=== PATIENT | female | born 1945 | race Caucasian/White ===

== ENCOUNTER 2017-05-24 08:07 | Inpatient (IN) | payer MEDICARE, OTHER ==
[~2017-05-24] VITALS: Ht 167.6 cm; Wt 60.3 kg
[~2017-05-24 08:07] MED LIST: ALPR0.5T PO; CLON1TAB PO; ESCI10TA PO; PROP20TA22 PO
[2017-05-24] MEDS ORDERED: ONDANSETRON HCL/PF 4 MG/2 ML VIAL ONE (08:25)
[2017-05-24] MEDS ORDERED: IV NS 0.9% 1,000 ML BAG IV ONE (08:30)
[2017-05-24] MEDS ORDERED: ONDANSETRON HCL/PF 4 MG/2 ML VIAL IVP ONE (08:30)
[2017-05-24 08:57] LABS: CALCIUM, SERUM 8.3 mg/dL (8.5-10.1); CARBON DIOXIDE 31 mmol/L (21-32); CHLORIDE 103 mmol/L (98-107); CREATININE 0.7 mg/dL (0.6-1.3); GLUCOSE 68 mg/dL (74-106); POTASSIUM 3.6 mmol/L (3.5-5.1); SODIUM SERUM 141 mmol/L (136-145); UREA NITROGEN, BLOOD 10 mg/dL (7-18)
[2017-05-24] MEDS ORDERED: HYDROMORPHONE 1 MG/1 ML DISP.SYRIN ONE (08:58)
[2017-05-24 08:59] LABS: BASOPHILS % (AUTO) 0.4 % (0.0-2.0); EOSINOPHILS # (AUTO) 0.3 /CMM (0.0-0.7); EOSINOPHILS % (AUTO) 3.8 % (0.0-6.0); HEMATOCRIT 39 % (33-45); HEMOGLOBIN 13.1 g/dL (11.5-14.8); LYMPHOCYTES # (AUTO) 1.2 /CMM (0.8-4.8); LYMPHOCYTES % (AUTO) 14.6 % (20.0-44.0); MEAN CORPUSCULAR HEMOGLOBIN 32 PG (26.0-33.0); MEAN CORPUSCULAR HGB CONC 34 g/dl (31.0-36.0); MEAN CORPUSCULAR VOLUME 95 fL (82-100); MONOCYTES # (AUTO) 0.5 /CMM (0.1-1.30); NEUTROPHILS # (AUTO) 6.2 /CMM (1.8-8.9); NEUTROPHILS % (AUTO) 75.2 % (43.0-81.0); PLATELET COUNT (AUTO) 242 /CMM (150-450); RDW COEFFICIENT OF VARIATION 14.3 (11.5-15.0); RED BLOOD CELL COUNT(AUTO) 4.07 MIL/uL (4.0-5.2); WHITE BLOOD COUNT (AUTO) 8.2 K/uL (4.3-11.0)
[2017-05-24] MEDS ORDERED: HYDROMORPHONE 1 MG/1 ML DISP.SYRIN IM ONE (09:00)
[2017-05-24 09:03] LABS: ALANINE AMINOTRANSFERASE 19 U/L (12-78); ALBUMIN 3.7 g/dL (3.4-5.0); ALKALINE PHOSPHATASE 57 U/L (46-116); ASPARTATE AMINOTRANSFERASE 12 U/L (15-37); BILIRUBIN,DIRECT 0.1 mg/dL (0.0-0.2); BILIRUBIN,TOTAL 0.3 mg/dL (0.2-1.0); TOTAL PROTEIN, SERUM 6.6 g/dL (6.4-8.2)
[2017-05-24 09:15] LABS: TROPONIN I < 0.017 ng/mL (0.00-0.056)
[2017-05-24 09:21] LABS: INR 1.01 (0.87-1.13); PROTHROMBIN TIME 10.8 SECS (9.5-12.7)
[2017-05-24] MEDS ORDERED: LEVOFLOXACIN 750 MG /D5W 150ML PIGGYBACK IV ONE (10:30)
[2017-05-24] MEDS ORDERED: FLAGYL/NS RTU 500 MG/100 ML PIGGYBACK IV ONE (10:30)
[2017-05-24] MEDS ORDERED: METRONIDAZOLE 500MG/ NS 100ML 100 ML IV ONE (10:36)
[2017-05-24] MEDS ORDERED: LEVOFLOXACIN 750 MG /D5W 150ML 150 ML IV ONE (10:37)
[2017-05-24] MEDS ORDERED: PRIM250T32 PO (10:52)
[2017-05-24] MEDS ORDERED: GABA-532 PO (10:52)
[2017-05-24] MEDS ORDERED: QUET50TA PO (10:52)
[2017-05-24] MEDS ORDERED: IV NS 0.9% 1,000 ML IV PRN (11:11)
[2017-05-24] MEDS ORDERED: MAG HYDROX/AL HYDROX/SIMETH 30 ML UDC PO PRN (11:30)
[2017-05-24] MEDS ORDERED: ACETAMINOPHEN 325 MG TABLET PO PRN (11:30)
[2017-05-24] MEDS ORDERED: MAGNESIUM HYDROXIDE 30 ML UDC PO PRN (11:30)
[2017-05-24] MEDS ORDERED: ZOLPIDEM TARTRATE 5 MG TABLET PO PRN (11:30)
[2017-05-24] MEDS ORDERED: HYDROCODONE/APAP 5/325MG 1 EACH TABLET PO PRN (11:30)
[2017-05-24] MEDS ORDERED: Z GUARD REMEDY 2 OZ OINT TP PRN (11:30)
[2017-05-24] MEDS ORDERED: ONDANSETRON HCL/PF 4 MG/2 ML VIAL IVP PRN (11:30)
[2017-05-24 12:00] VITALS: BP 106/61
[2017-05-24] MEDS ORDERED: GABAPENTIN 100 MG CAPSULE PO SCH (13:00)
[2017-05-24] MEDS ORDERED: POLYETHYLENE GLYCOL 3350 17 GM POWD.PACK PO PRN (15:00)
[2017-05-24] MEDS ORDERED: MORPHINE SULFATE INJ 2 MG/ML DISP.SYRIN IV PRN (15:30)
[2017-05-24] MEDS: LORAZEPAM INJ 2 MG/ML VIAL IV PRN ×2 (15:33→21:54)
[2017-05-24 16:00] VITALS: BP 113/59
[2017-05-24] MEDS: SENNOSIDES/DOCUSATE SODIUM 1 TAB TABLET PO SCH (16:12)
[2017-05-24] MEDS: METRONIDAZOLE 500MG/ NS 100ML 500 MG in PREMIX 1 EA IV SCH (17:13)
[2017-05-24] MEDS ORDERED: PROP10DR2 EACHEYE (17:19)
[2017-05-24] MEDS ORDERED: CARBOXYMETHYLCELLULOSE SODIUM 0.4 ML DROPERETTE EACHEYE PRN ×2 (17:30→18:00)
[2017-05-24] MEDS ORDERED: CEFTRIAXONE 1 G in IV D5W 50 ML IV SCH (18:00)
[2017-05-24 19:57] VITALS: BP 105/60
[2017-05-24 20:00] VITALS: BP 105/60
[2017-05-24] MEDS ORDERED: clonazePAM 1 MG TABLET PO SCH (22:00)
[2017-05-24] MEDS ORDERED: GABAPENTIN 300 MG CAPSULE PO SCH (22:00)
[2017-05-24] MEDS ORDERED: QUETIAPINE FUMARATE 100 MG TABLET PO SCH (22:00)
[2017-05-25] MEDS: METRONIDAZOLE 500MG/ NS 100ML 500 MG in PREMIX 1 EA IV SCH ×2 (00:17→08:31)
[2017-05-25] MEDS: LORAZEPAM INJ 2 MG/ML VIAL IV PRN ×2 (05:39→09:44)
[2017-05-25] MEDS ORDERED: LEVOFLOXACIN 750 MG /D5W 150ML 750 MG in PREMIX 1 EA IV SCH (06:00)
[2017-05-25 06:28] LABS: BASOPHILS % (AUTO) 0.3 % (0.0-2.0); EOSINOPHILS # (AUTO) 0.6 /CMM (0.0-0.7); EOSINOPHILS % (AUTO) 7.2 % (0.0-6.0); HEMATOCRIT 36 % (33-45); HEMOGLOBIN 12.4 g/dL (11.5-14.8); LYMPHOCYTES # (AUTO) 2.3 /CMM (0.8-4.8); LYMPHOCYTES % (AUTO) 25.5 % (20.0-44.0); MEAN CORPUSCULAR HEMOGLOBIN 33 PG (26.0-33.0); MEAN CORPUSCULAR HGB CONC 34 g/dl (31.0-36.0); MEAN CORPUSCULAR VOLUME 95 fL (82-100); MONOCYTES # (AUTO) 0.6 /CMM (0.1-1.30); MONOCYTES % (AUTO) 7.2 % (2.0-12.0); NEUTROPHILS # (AUTO) 5.3 /CMM (1.8-8.9); NEUTROPHILS % (AUTO) 59.8 % (43.0-81.0); PLATELET COUNT (AUTO) 224 /CMM (150-450); RDW COEFFICIENT OF VARIATION 14.3 (11.5-15.0); WHITE BLOOD COUNT (AUTO) 8.9 K/uL (4.3-11.0)
[2017-05-25 06:44] LABS: ALANINE AMINOTRANSFERASE 17 U/L (12-78); ALBUMIN 3.1 g/dL (3.4-5.0); ALKALINE PHOSPHATASE 50 U/L (46-116); ASPARTATE AMINOTRANSFERASE 12 U/L (15-37); BILIRUBIN,DIRECT 0.1 mg/dL (0.0-0.2); BILIRUBIN,TOTAL 0.4 mg/dL (0.2-1.0); CALCIUM, SERUM 8.1 mg/dL (8.5-10.1); CARBON DIOXIDE 30 mmol/L (21-32); CHLORIDE 108 mmol/L (98-107); CREATININE 0.6 mg/dL (0.6-1.3); GLUCOSE 69 mg/dL (74-106); MAGNESIUM 1.9 mg/dL (1.8-2.4); PHOSPHORUS 4.2 mg/dL (2.5-4.9); POTASSIUM 4.1 mmol/L (3.5-5.1); SODIUM SERUM 144 mmol/L (136-145); TOTAL PROTEIN, SERUM 5.8 g/dL (6.4-8.2); UREA NITROGEN, BLOOD 10 mg/dL (7-18)
[2017-05-25 06:51] LABS: CHOLESTEROL 198 mg/dL (<200); HDL CHOLESTEROL 86 mg/dL (40-60); LDL 107 mg/dL (0-99); THYROID STIMULATING HORMONE 1.938 uIU/mL (0.358-3.74); TRIGLYCERIDES 41 mg/dL (30-150)
[2017-05-25 06:55] LABS: IRON, SERUM 54 ug/dl (50-175); TOTAL IRON BINDING CAPACITY 214 ug/dl (250-450)
[2017-05-25] MEDS ORDERED: PANTOPRAZOLE 40 MG TABLET.DR PO SCH (07:30)
[2017-05-25 08:00] VITALS: BP_SYST 108; BP_SYST 112; BP_DIAS 58
[2017-05-25] MEDS: SENNOSIDES/DOCUSATE SODIUM 1 TAB TABLET PO SCH ×2 (08:31→17:00)
[2017-05-25] MEDS ORDERED: GABAPENTIN 100 MG CAPSULE PO SCH (09:00)
[2017-05-25] MEDS ORDERED: QUETIAPINE FUMARATE 25 MG TABLET PO SCH (09:00)
[2017-05-25] MEDS ORDERED: PRIMIDONE 250 MG TABLET PO SCH (09:00)
[2017-05-25] MEDS ORDERED: METR500T PO (13:21)
[2017-05-25] MEDS ORDERED: METRONIDAZOLE 500MG/ NS 100ML 500 MG in PREMIX 1 EA IV SCH (13:30)
[2017-05-25 15:29] LABS: APPEARANCE,URINE CLEAR (CLEAR); BILIRUBIN,URINE NEGATIVE (NEGATIVE); BLOOD, URINE NEGATIVE Ery/uL (NEGATIVE); COLOR,URINE YELLOW (YELLOW); KETONES,URINE NEGATIVE (NEGATIVE); LEUKOCYTE ESTERASE ,URINE TRACE (NEGATIVE); NITRITE, URINE NEGATIVE (NEGATIVE); PROTEIN,URINE NEGATIVE (NEGATIVE); UGLUCOSE NEGATIVE (NEGATIVE); UROBILINOGEN,URINE 0.2 EU/dL (0.2)
[2017-05-25 16:00] VITALS: BP 99/67
[2017-05-25 16:00] LABS: BACTERIA,URINE Few /HPF (None Seen); RBC,URINE 0-2 /HPF (0-2); SQUAMOUS EPITHELIAL CELL,UR Rare /HPF (None Seen)
[2017-05-25] MEDS ORDERED: CEFTRIAXONE 1 G in IV D5W 50 ML IV SCH (18:00)
[2017-05-26] MEDS ORDERED: LEVOFLOXACIN 750 MG /D5W 150ML 750 MG in PREMIX 1 EA IV SCH (11:00)
== END 2017-05-25 18:40 | disposition home or self-care (01) | DRG 392 ==
LOC: ER 08:08 → MED 11:08
PROVIDERS: ADMIT Internal Medicine; ATTEND Internal Medicine
DX: K57.32 Diverticulitis of large intestine without perforation or abscess without bleeding (principal); E86.0 Dehydration; F32.9 Major depressive disorder, single episode, unspecified; G62.9 Polyneuropathy, unspecified; G89.4 Chronic pain syndrome; K21.9 Gastro-esophageal reflux disease without esophagitis; K59.09 Other constipation; Z79.899 Other long term (current) drug therapy; Z87.891 Personal history of nicotine dependence; F41.9 Anxiety disorder, unspecified; F43.10 Post-traumatic stress disorder, unspecified
CPT/HCPCS: 36415; 71010-TC; 72128-TC; 80048-TC; 80061-TC; 80076-TC; 80305; 81000-TC; 82746; 83540-TC; 83735-TC; 84100-TC; 84443-TC; 84484-TC; 85025-TC; 85730-TC; 87081-TC; 93307-TC; 97001-TC; A4216; A4606; J0696; J1170; J1956; J2060; J2405; J3490; J7030; J7060; Z7610

== ENCOUNTER 2019-03-15 10:44 | Inpatient (IN) | payer MEDICARE, BC, MEDICAID ==
[~2019-03-15] VITALS: Ht 167.6 cm; Wt 63.5 kg
[2019-03-15] VITALS (26 sets, daily range): BP systolic 77–130; BP diastolic 44–72
[~2019-03-15 10:44] MED LIST changes: -ALPR0.5T PO; -ESCI10TA PO; +GABA-532 PO; +METR500T PO; +PRIM250T32 PO; +PROP10DR2 EACHEYE; -PROP20TA22 PO; +QUET50TA PO
--- NOTE | 2019-03-15 10:55 | NUR ---
BIB RA, FOUND ALTERED AT HOME. PLACED ON THE MONITOR AND HOSPITAL GOWN. PLACED ON NR AT THIS TIME. PATIENT RESPONDS TO STERNAL RUB. WILL CONTINUOUSLY MONITOR THE AIRWAY AND BLOOD PRESSURE. FO=111/55 AND HR=49. DR CARABALLO AT FOR EVAL.
[2019-03-15] MEDS ORDERED: IV NS 0.9% 1,000 ML BAG IV ONE (11:00)
--- NOTE | 2019-03-15 11:09 | NUR ---
INTUBATION TIME OUT DONE: 1109 1110 - ATRPINE 0.5MG IVP GIVEN BY MARIAMA ANDERSON 1110 - HR 46, BP 95/53, O2 SAT 100%, RESP 14 1111- SUCC 100MG HR 59 BP 127/85 02-100% R - 14 1112 - DR CARABALLO INTUBATING PT 1112- PT INTUBATED ETT 7.5 22 @ LIP + COLOR CHANGE + BILATERAL BREATH SOUNDS 1113- HR 81 BP 142/83 R 14 O2 100%
--- NOTE | 2019-03-15 11:12 | NUR ---
PT. ORALLY INTUBATED FOR AIRWAY PROTECTION WITH 7.5 ET TUBE SECURED @ 22 CM SYCFMG-LA-MNJ-LIPS. CO2 DETECTOR CHANGED TO GOLD COLOR, WITH CLEAR BILATERAL BREATH SOUNDS ON POST INTUBATION. VENT PARAMETERS BELOW ORDER: AC 12 [id number] FIO2 100% PEEP 5 ALARMS IS ON AND FUNCTIONING WITH AMBU BAG @ BEDSIDE. Addendum: 03/15/19 at 1200 by NANCY PORTER RT Amended: Links added.
[2019-03-15 11:13] LABS: BASOPHILS % (AUTO) 0.3 % (0.0-2.0); EOSINOPHILS % (AUTO) 0.3 % (0.0-6.0); HEMATOCRIT 40 % (33-45); HEMOGLOBIN 14.1 g/dL (11.5-14.8); LYMPHOCYTES # (AUTO) 1.8 /CMM (0.8-4.8); LYMPHOCYTES % (AUTO) 22.8 % (20.0-44.0); MEAN CORPUSCULAR HGB CONC 35 g/dl (31.0-36.0); MEAN CORPUSCULAR VOLUME 93 fL (82-100); MONOCYTES # (AUTO) 0.5 /CMM (0.1-1.30); MONOCYTES % (AUTO) 6.3 % (2.0-12.0); NEUTROPHILS # (AUTO) 5.4 /CMM (1.8-8.9); NEUTROPHILS % (AUTO) 70.3 % (43.0-81.0); PLATELET COUNT (AUTO) 277 /CMM (150-450); RED BLOOD CELL COUNT(AUTO) 4.35 MIL/uL (4.0-5.2); WHITE BLOOD COUNT (AUTO) 7.7 K/uL (4.3-11.0)
[2019-03-15] MEDS ORDERED: PROPOFOL 100 ML ONE (11:13)
[2019-03-15 11:15] LABS: CALCIUM, SERUM 7.8 mg/dL (8.5-10.1); CARBON DIOXIDE 29 mmol/L (21-32); CHLORIDE 98 mmol/L (98-107); CREATININE 0.6 mg/dL (0.6-1.3); GLUCOSE 106 mg/dL (74-106); POTASSIUM 4.1 mmol/L (3.5-5.1); SODIUM SERUM 134 mmol/L (136-145); UREA NITROGEN, BLOOD 8 mg/dL (7-18)
[2019-03-15 11:20] LABS: ALANINE AMINOTRANSFERASE 18 U/L (12-78); ALBUMIN 3.4 g/dL (3.4-5.0); ALCOHOL, BLOOD < 3 mg/dL (0-0); ALKALINE PHOSPHATASE 44 U/L (46-116); ASPARTATE AMINOTRANSFERASE 26 U/L (15-37); BILIRUBIN,DIRECT 0.1 mg/dL (0.0-0.2); BILIRUBIN,TOTAL 0.5 mg/dL (0.2-1.0); TOTAL PROTEIN, SERUM 6.6 g/dL (6.4-8.2)
[2019-03-15 11:21] LABS: ACETAMINOPHEN 0 ug/ml (10-30); SALICYLATE 1.1 mg/dL (2.8-20.0)
[2019-03-15 11:23] LABS: SERUM AMMONIA 12 umol/L (11-32)
--- NOTE | 2019-03-15 11:25 | NUR ---
CALLED FOR ICU BED, TURNED IN MOVE SHEET
[2019-03-15] MEDS ORDERED: PROPOFOL 100 ML IV PRN (11:30)
[2019-03-15 11:38] LABS: APPEARANCE,URINE Clear (CLEAR); BILIRUBIN,URINE Negative (NEGATIVE); BLOOD, URINE Negative Ery/uL (NEGATIVE); COLOR,URINE Yellow (YELLOW); KETONES,URINE Trace (NEGATIVE); LEUKOCYTE ESTERASE ,URINE Negative (NEGATIVE); NITRITE, URINE Negative (NEGATIVE); PH,URINE 7.5 (5.0-8.0); PROTEIN,URINE Negative (NEGATIVE); UGLUCOSE Negative (NEGATIVE)
--- NOTE | 2019-03-15 11:40 | NUR ---
Patient came back from CT via gurney. Patient VSS.
[2019-03-15 11:41] LABS: BACTERIA,URINE Few /HPF (None Seen); MUCUS,URINE Rare /LPF (None Seen); RBC,URINE 0-2 /HPF (0-2); SQUAMOUS EPITHELIAL CELL,UR Rare /HPF (None Seen); WBC,URINE 0-2 /HPF (0-3)
--- NOTE | 2019-03-15 11:53 | NUR ---
ICU BED 258
--- NOTE | 2019-03-15 11:58 | NUR ---
Patient is resting comfortably in bed with eyes closed. Easily aroused. VSS
[2019-03-15] MEDS ORDERED: ATROPINE SULFATE INJ 1 MG/ML VIAL IV ONE (12:00)
[2019-03-15] MEDS ORDERED: SUCCINYLCHOLINE CHLORIDE 20 MG/ML VIAL IV ONE ×2 (12:00→14:47)
[2019-03-15] MEDS ORDERED: IV D5/0.45 NACL 1,000 ML IV PRN (12:17)
[2019-03-15] MEDS ORDERED: ONDANSETRON HCL/PF 4 MG/2 ML VIAL IVP PRN (12:30)
[2019-03-15] MEDS ORDERED: ACETAMINOPHEN 650 MG/SUPP.RECT RC PRN (12:30)
--- NOTE | 2019-03-15 12:34 | NUR ---
REPORT GIVEN TO MARIAMA PALMER FOR [facility] ICU 258.
[2019-03-15 12:41] LABS: ABG OXYGEN SATURATION 99.2 % (92.0-98.5); ABG PCO2 29.7 mmHg (35.0-45.0); ABG PH 7.461 (7.350-7.450); ABG PO2 457.7 mmHg (75.0-100.0); AaDO2 225.6 mmHg; COHb 0.4 % (0.5-1.5); MetHb 0.5 % (0.0-1.5); O2Hb 98.3 % (94.0-97.0); PEEP,BG 5 cm H2O; SITE, ABG Right Radial; VT, ABG 500 mL
--- NOTE | 2019-03-15 12:56 | NUR ---
VENT CHANGES BELOW PER DR. CARABALLO: VT 450ML FIO2 40% Addendum: 03/15/19 at 1257 by NANCY PORTER RT Amended: Links added.
--- NOTE | 2019-03-15 13:41 | NUR ---
GROUND INSTRUCTOR BASIC NOTE RCVD PT SEDATED, INTUBATED 7.03/21 SHOWING NO SIGNS OF DISTRESS/PAIN, SB ON MONITOR, PILLAI TO GRAVITY DRAINING CLEAR, YELLOW URINE, IV SITES C/D/I/PATENT, NO S/O INFILTRATION/PHLEBITIS OBSERVED UPON FLUSHING. PT'S AND DAUGHTER, NICOLE AT BEDSIDE UPDATED ON PT'S CONDITION, QUESTIONS ANSWERED. WILL CONTINUE TO MONITOR PT FOR SAFETY AND COMFORT. BED IN LOW AND LOCKED POSITION. CALL LIGHT WITHIN REACH, HEAD OF BED ELEVATED, SCD's ON.
[2019-03-15] MEDS: ENOXAPARIN SODIUM 40 MG/0.4 ML DISP.SYRIN SQ SCH (13:42)
[2019-03-15] MEDS ORDERED: ATROPINE SULFATE 1 MG/10 ML DISP.SYRIN IV ONE (14:47)
[2019-03-15] MEDS ORDERED: OLOP2.5D5 EACHEYE (14:53)
[2019-03-15] MEDS ORDERED: ESCI20TA PO (14:53)
[2019-03-15] MEDS ORDERED: CLON1TAB12 PO (14:53)
[2019-03-15] MEDS ORDERED: TEMA15CA PO (14:53)
--- NOTE | 2019-03-15 15:17 | NUR ---
Social service consult requested by MARIAMA Culp for advance directive information. ANGELA contacted MARIAMA Culp who informed SW that pt's daughter Johanny is requesting the Advance Directive information. MARIAMA Culp informed SW the daughter is not here at the hospital but to give her the information and she will give it to Johanny who is coming later this evening. ANGELA gave the Advance Directive form along with notary contact to ICU CRN Capo to give to MARIAMA Culp.
[2019-03-15] MEDS: FAMOTIDINE/PF INJ 20 MG/2 ML VIAL IV SCH (16:51)
[2019-03-15] MEDS: PROPOFOL 100 ML IV PRN (16:52)
--- NOTE | 2019-03-15 18:53 | NUR ---
MAINTENANCE PLANNING CLERK NOTE PT REMAINS STABLE, SHOWING NO SIGNS OF DISTRESS/PAIN, SB ON MONITOR TOLERATING VENT SETTINGS WELL, IV SITES C/D/I/PATENT, IVF INFUSING ORDERED. PILLAI TO GRAVITY DRAINING CLEAR, YELLOW URINE. PT'S CARE WILL BE ENDORSED TO PSYCHOLOGIST COUNSELING RN FOR CONTINUITY OF CARE, BED IN LOW AND LOCKED POSITION. CALL LIGHT WITHIN REACH, HEAD OF BED ELEVATED. ADVANCE DIRECTIVE PAPERWORK HANDED TO PT'S DAUGHTER, NICOLE.
--- NOTE | 2019-03-15 19:30 | NUR ---
HOSPITAL ADMITTING CLERK NOTE RECEIVED PT SEDATED AND VENTILATED. ETT 7.5 AND 22CM @ THE LIP. ON MECH VENT WITH SETTINGS WELL TOLERATED. BREATHING UNLABORED. HOB ELEVATED AND ON ASPIRATION PRECAUTIONS. BILATERAL SOFT WRIST RESTRAINTS IN PLACE WITH NO DISCOLORATION NOTED AND PALPABLE RADIAL PULSES. TELE-SINUS ARVIND 50'S. IVS CLEAN AND PATENT WITH FLUIDS INFUSING. PILLAI CATHETER IN PLACE AND DRAINING BY GRAVITY. WILL CONTINUE TO MONITOR.
--- NOTE | 2019-03-15 19:31 | NUR ---
RECEIVED PT ORALLY INTUBATED WITH 7.5 ETT SECURED @ 22 CM AT THE LIP ON THE VENT WITH NOTED SETTINGS. PT IS SEDATED. SX'D SMALL AMT OF THICK PALE YELLOW SECRETIONS. VENT ALARMS SET AND AUDIBLE. AMBU BAG AT BEDSIDE. VENT PLUGGED INTO RED OUTLET. NO RESPIRATORY DISTRESS NOTED AT THIS TIME. WILL CONTINUE TO MONITOR THE PT..
[2019-03-15] MEDS ORDERED: ATROPINE SULFATE 1 MG/10 ML DISP.SYRIN IV PRN (20:00)
--- NOTE | 2019-03-15 20:00 | NUR ---
VOICE SYSTEMS ENGINEER NOTE NOTED WITH SBP IN THE 80'S. SPOKE WITH SPLICING SUPERVISOR CLARISSA CHARACTER ACTRESS WITH ORDERS TO START LEVO TO KEEP SBP >90 AND GIVE ATROPINE 0.5MG/0.5ML PRN FOR HEART RATE <40.ORDERS NOTED AND CARRIED OUT. WILL MONITOR.
[2019-03-15] MEDS ORDERED: ATROPINE SULFATE INJ 1 MG/ML VIAL IV PRN (20:30)
[2019-03-16] VITALS (50 sets, daily range): BP systolic 75–137; BP diastolic 27–70
--- NOTE | 2019-03-16 00:15 | NUR ---
FRONT TENDER NOTE NOTIFIED GRAVITY PROSPECTOR CLARISSA RADIOTELEPHONE TECHNICAL OPERATOR PT HAS LOW URINE OUTPUT. WITH ORDERS TO DO STAT BNP AND INCREASE IVF TO 125ML/HR. ORDERS NOTED AND CARRIED OUT.
[2019-03-16 01:04] LABS: CARBON DIOXIDE 25 mmol/L (21-32); CHLORIDE 100 mmol/L (98-107); CREATININE 0.6 mg/dL (0.6-1.3); GLUCOSE 103 mg/dL (74-106); SODIUM SERUM 134 mmol/L (136-145); UREA NITROGEN, BLOOD 7 mg/dL (7-18)
--- NOTE | 2019-03-16 01:37 | NUR ---
CARCASS SPLITTER NOTE NOTIFIED MILK BOTTLER CLARISSA ASSEMBLY STOCK SUPERVISOR POTASSIUM 3.0. WITH ORDERS TO DECREASE IV FLUIDS TO 100 ML/HR AND GIVE POTASSIUM 40MEQ IVPB OVER 4 HOURS. ORDERS NOTED AND CARRIED OUT. WILL MONITOR.
[2019-03-16 01:43] LABS: CALCIUM, SERUM 7.1 mg/dL (8.5-10.1); CARBON DIOXIDE 24 mmol/L (21-32); CHLORIDE 100 mmol/L (98-107); CREATININE 0.6 mg/dL (0.6-1.3); GLUCOSE 103 mg/dL (74-106); SODIUM SERUM 135 mmol/L (136-145); UREA NITROGEN, BLOOD 8 mg/dL (7-18)
[2019-03-16] MEDS: POTASSIUM CL. PREMIX PERIPHER. 50 ML IV SCH ×4 (01:44→04:56)
[2019-03-16] MEDS: IV D5/0.45 NACL 1,000 ML IV PRN ×3 (02:22→22:28)
[2019-03-16 04:22] LABS: BASOPHILS # (AUTO) 0.1 /CMM (0.0-0.2); BASOPHILS % (AUTO) 0.6 % (0.0-2.0); EOSINOPHILS % (AUTO) 3.1 % (0.0-6.0); HEMATOCRIT 37 % (33-45); LYMPHOCYTES # (AUTO) 1.9 /CMM (0.8-4.8); LYMPHOCYTES % (AUTO) 18.3 % (20.0-44.0); MEAN CORPUSCULAR HGB CONC 35 g/dl (31.0-36.0); MEAN CORPUSCULAR VOLUME 93 fL (82-100); MONOCYTES # (AUTO) 0.9 /CMM (0.1-1.30); MONOCYTES % (AUTO) 8.3 % (2.0-12.0); NEUTROPHILS # (AUTO) 7.2 /CMM (1.8-8.9); NEUTROPHILS % (AUTO) 69.7 % (43.0-81.0); PLATELET COUNT (AUTO) 252 /CMM (150-450); WHITE BLOOD COUNT (AUTO) 10.3 K/uL (4.3-11.0)
[2019-03-16 04:34] LABS: CALCIUM, SERUM 6.8 mg/dL (8.5-10.1); CARBON DIOXIDE 28 mmol/L (21-32); CHLORIDE 98 mmol/L (98-107); CREATININE 0.6 mg/dL (0.6-1.3); GLUCOSE 122 mg/dL (74-106); MAGNESIUM 1.8 mg/dL (1.8-2.4); PHOSPHORUS 2.5 mg/dL (2.5-4.9); POTASSIUM 3.6 mmol/L (3.5-5.1); SODIUM SERUM 132 mmol/L (136-145); UREA NITROGEN, BLOOD 7 mg/dL (7-18)
[2019-03-16 04:55] LABS: CHOLESTEROL 148 mg/dL (<200); HDL CHOLESTEROL 58 mg/dL (40-60); LDL 77 mg/dL (0-99); THYROID STIMULATING HORMONE 2.373 uIU/mL (0.358-3.74); TRIGLYCERIDES 180 mg/dL (30-150)
[2019-03-16] MEDS: PROPOFOL 100 ML IV PRN (05:04)
--- NOTE | 2019-03-16 06:45 | NUR ---
DIRECTOR OF PRIMARY NOTE NO ACUTE DISTRESS NOTED. REMAINED STABLE DURING SHIFT. ALL NEEDS ATTENDED TO PROMPTLY. KEPT CLEAN AND DRY. REPOSITIONED Q2H. VENT SETTINGS WELL TOLERATED. WILL ENDORSE TO NEXT SHIFT FOR CONTINUITY OF CARE.
--- NOTE | 2019-03-16 07:37 | NUR ---
RT PT REC'D ON VENT VIA 7.5 ETT AT 22CM AT THE LIP. VENT SETTINGS PER MD REQUEST. PT HAS A GOOD GAG REFLEX DURING SX. MINIMAL SECRETIONS SX. THICK WHITE PHLEGM. PT IS SEDATED YET RESPONDS TO STIMULI. VENT ALARMS SET AND AUDIBLE PER POLICY. AMBU BAG AT [facility]. VENT PLUGGED INTO RED OUTLET. Addendum: 03/16/19 at 0740 by ALANA MONTOYA RT Amended: Links added.
--- NOTE | 2019-03-16 08:39 | NUR ---
received pt from night warehouse manager, sedated on Diprivan at 20mcg, on the vent, lungs partially congested, no edema, NPO, f/c good output, v/s stable, no pain, pt turned and repositioned.
[2019-03-16] MEDS: NOREPINEPHRINE 8 MG in IV D5W 500 ML IV PRN (09:02)
[2019-03-16] MEDS: ENOXAPARIN SODIUM 40 MG/0.4 ML DISP.SYRIN SQ SCH (09:10)
[2019-03-16] MEDS: FAMOTIDINE/PF INJ 20 MG/2 ML VIAL IV SCH ×2 (09:10→16:25)
[2019-03-16] MEDS ORDERED: FUROSEMIDE 40 MG/4 ML VIAL IV ONE (10:00)
--- NOTE | 2019-03-16 11:10 | NUR ---
RT PT PLACED ON CPAP TRIAL PER DR. LANGSTON. PT IS AWAKE AND ALERT, FOLLOWING COMMANDS. PT'S AND DAUGHTER AT BEDSIDE. PT IS TOLERATING CPAP TRIAL. NO RESP. DISTRESS NOTED. MARIAMA DE LA CRUZ AT BEDSIDE. AWARE OF CHANGES. VENT ALARMS ADJUSTED AND AUDIBLE. AMBU BAG AT HOB. Addendum: 03/16/19 at 1115 by ALANA MONTOYA RT Amended: Links added.
--- NOTE | 2019-03-16 11:11 | NUR ---
pt on CPAP mode
--- NOTE | 2019-03-16 12:27 | NUR ---
pt is resting in the bed, alert, follows commands, on CPAP mode, tolerating well, v/s stable, no pain, family at the bedside.
[2019-03-16 12:28] LABS: ABG BASE EXCESS 1.4 mmol/L; ABG PCO2 30.8 mmHg (35.0-45.0); ABG PH 7.503 (7.350-7.450); ABG PO2 111.8 mmHg (75.0-100.0); AaDO2 65.9 mmHg; COHb 0.7 % (0.5-1.5); MetHb 0.5 % (0.0-1.5); O2Hb 96.8 % (94.0-97.0); PEEP,BG 5 cm H2O; SITE, ABG Right Radial
--- NOTE | 2019-03-16 12:40 | NUR ---
RT PT EXTUBATED PER DR. LANGSTON ORDERS. PT IS AWAKE AND ALERT, FOLLOWING COMMANDS. NO STRIDOR PRESENT S/P EXTUBATION. PLACED ON 2LPM NASAL CANNULA. SPO2 100%. FAMILY AT BEDSIDE. MARIAMA DE LA CRUZ AT BEDSIDE.
--- NOTE | 2019-03-16 12:50 | NUR ---
pt is extubated, v/s stable, alert, follows commands.
--- NOTE | 2019-03-16 16:22 | NUR ---
pt is resting in the bed, alert, follows commands, SR, able to swallow ice chips, good urine output, v/s stable, no pain, pt cleaned, turned and repositioned q2hs.
[2019-03-16] MEDS ORDERED: MENTHOL/CETYLPYRD (CEPACOL) 1 LOZ LOZENGE PO PRN (17:30)
--- NOTE | 2019-03-16 19:12 | NUR ---
FRAME HAND. INITIAL ASSESSMENT. RECEIVED THE PT REST ON THE BED, AWAKE, ALERT, FOLLOW COMMANDS, HELIOTHERAPIST SHOWING NSR. IV RT HAND 20, IVF D51/2NS 100ML/H. HOB ELEVATED, OXYGEN 3L VIA NASAL CANNULA. SAT 98%. NO ACUTE DISTRESS NOTED. FC PATENT. URINE DRAINING, WILL CONTINUE TO MONITOR VITALS,
--- NOTE | 2019-03-16 20:10 | NUR ---
Met with patient in ICU s/p extubated. She is alert, lives locally with her spouse on the second floor condo with elevator access. States she was ambulatory and independent with adl's prior to hospitalization. No DME or homehealth reported. She plan to return home once discharge. Addendum: 03/16/19 at 2016 by SAYDA LEE RN Amended: Links added.
--- NOTE | 2019-03-16 20:27 | NUR ---
ADOPTION COUNSELOR. LT HAND IV INFILTRATED. REMOVED AND NEW ONE PLACED.
[2019-03-16] MEDS ORDERED: TEMAZEPAM 7.5 MG CAPSULE PO PRN (22:00)
[2019-03-17] VITALS (35 sets, daily range): BP systolic 72–118; BP diastolic 34–72
[2019-03-17] MEDS: NOREPINEPHRINE 8 MG in IV D5W 500 ML IV PRN (02:30)
[2019-03-17 04:54] LABS: BASOPHILS % (AUTO) 0.5 % (0.0-2.0); EOSINOPHILS % (AUTO) 3.8 % (0.0-6.0); HEMATOCRIT 37 % (33-45); HEMOGLOBIN 13.1 g/dL (11.5-14.8); LYMPHOCYTES # (AUTO) 1.8 /CMM (0.8-4.8); LYMPHOCYTES % (AUTO) 17.9 % (20.0-44.0); MEAN CORPUSCULAR HGB CONC 35 g/dl (31.0-36.0); MEAN CORPUSCULAR VOLUME 91 fL (82-100); MONOCYTES # (AUTO) 0.9 /CMM (0.1-1.30); NEUTROPHILS # (AUTO) 6.7 /CMM (1.8-8.9); NEUTROPHILS % (AUTO) 68.8 % (43.0-81.0); PLATELET COUNT (AUTO) 282 /CMM (150-450); WHITE BLOOD COUNT (AUTO) 9.8 K/uL (4.3-11.0)
--- NOTE | 2019-03-17 05:08 | NUR ---
FLUMER AM CARE, ORAL CARE, BED BATH GIVEN, LINEN CHANGED, REMAINING SAME OXYGEN TOLERATED WELL. SAT 98%, NO ACUTE DISTRESS NOTED. CIRCUS HAND SHOWING NSR, IV RT HAND MID LINE IVF D5NS 100ML/H. FC PATENT, URINE DRAINING, TURN AND REPOSITION [id number] CONTINUE TO MONITOR VITALS
[2019-03-17 05:35] LABS: CALCIUM, SERUM 7.4 mg/dL (8.5-10.1); CARBON DIOXIDE 26 mmol/L (21-32); CHLORIDE 108 mmol/L (98-107); CREATININE 0.5 mg/dL (0.6-1.3); GLUCOSE 124 mg/dL (74-106); PHOSPHORUS 2.6 mg/dL (2.5-4.9); SODIUM SERUM 143 mmol/L (136-145); UREA NITROGEN, BLOOD 5 mg/dL (7-18)
[2019-03-17 05:50] LABS: POTASSIUM 2.8 mmol/L (3.5-5.1)
[2019-03-17] MEDS: POTASSIUM CL. PREMIX PERIPHER. 50 ML IV SCH ×4 (06:26→09:21)
--- NOTE | 2019-03-17 07:00 | NUR ---
RN NOTES RECEIVED PT ON BED ,A/Ox3, ON BIPAP, TOLERATING CURRENT BIPAP SETTING WELL, O2 SAT 95%, ON TELE ST HR IN LOW 100'S, ROSAS DRINING TO GRAVITY, R ARM SWELLING NOTED, R ARM ELEVATED ON A PILLOW, POSITIVE RADIAL PULSE NOTED, L UPPER ARM PICC LINE SITE CLEAN, DRY AND INTACT, SR UP x3, CALL LIGHT WITHIN EASY REACH, BED LOCKED AND IN LOWEST POSITION, CONTINUE TO MONITOR . Addendum: 03/17/19 at 0732 by JADA IBARRA RN PLEASE DISREGARD ABOVE CHARTING CHARTED ON A WRONG PT
--- NOTE | 2019-03-17 07:00 | NUR ---
RN NOTES RECEIVED PT ON BED, A/OX4, RESPIRATION EVEN AND UNLABORED, ON 2L O2 N/C ,O2 SAT 100%, NO SOB NOTED, ON TELE SR HR IN 90'S , PILLAI DRAINING TO GRAVITY ,R WRIST IV G 20 AND L WRIST IV G 22 SITES , CLEAN, DRY AND INTACT, LEVO AT 6MCG/ MIN RUNNING , SR UP X3, CALL LIGHT WITHIN EASY REACH, BED LOCKED AND IN LOWEST POSITION, CONTINUE TO MONITOR.
[2019-03-17] MEDS: ENOXAPARIN SODIUM 40 MG/0.4 ML DISP.SYRIN SQ SCH (08:12)
[2019-03-17] MEDS: FAMOTIDINE/PF INJ 20 MG/2 ML VIAL IV SCH (08:12)
[2019-03-17] MEDS: IV D5/0.45 NACL 1,000 ML IV PRN (08:35)
--- NOTE | 2019-03-17 12:00 | NUR ---
RN NOTES PT STATED WANTS TO GO HOME AMA. DR HERNANDEZ AWARE , EXPLAINED TO PT HOW IMPORTANT IS TO FOLLOW PLAN OF CARE AND , RISKS THAT ARE ASSOCIATED WITH LEAVING AGAINST MEDICAL ADVISED. PT STILL WANTS TO GO HOME AMA. CHARGE NURSE AND NURSING PAVING AND SURFACING LABOURER NOTIFED, FOLY D/LESLEY. IV SITES REMOVED, LEVO GTT AND IVF D/LESLEY. AT THE BEDSIDE. CONTINUE TO MONITOR .
--- NOTE | 2019-03-17 13:03 | NUR ---
RN NOTES PT REFUSED TO STAY AND VOID AFTER PILLAI WAS REMOVED, STATED WANTS TO GO HOME NOW , PT LEFT THE FLOOR VIA W/C TO MAIN ENTRANCE ACCOMPANIED BY STAFF MEMBER AND .
== END 2019-03-17 14:12 | disposition left against medical advice (07) | DRG 917 ==
LOC: ER 10:46 → ICU 12:16
PROC: 5A1935Z Respiratory Ventilation, Less than 24 Consecutive Hours (ICD-10-PCS; principal; 2019-03-15)
PROC: 0BH17EZ Insertion of Endotracheal Airway into Trachea, Via Natural or Artificial Opening (ICD-10-PCS; 2019-03-15)
DX: T50.901A Poisoning by unspecified drugs, medicaments and biological substances, accidental (unintentional), initial encounter (principal); J96.01 Acute respiratory failure with hypoxia; G92 Toxic encephalopathy; Y92.89 Other specified places as the place of occurrence of the external cause; M19.90 Unspecified osteoarthritis, unspecified site; K21.9 Gastro-esophageal reflux disease without esophagitis; F43.10 Post-traumatic stress disorder, unspecified; F32.9 Major depressive disorder, single episode, unspecified; F41.9 Anxiety disorder, unspecified; M81.0 Age-related osteoporosis without current pathological fracture; Z88.5 Allergy status to narcotic agent; Z79.899 Other long term (current) drug therapy; J43.9 Emphysema, unspecified; J32.0 Chronic maxillary sinusitis; Z87.891 Personal history of nicotine dependence
CPT/HCPCS: 31720; 36415; 36600; 70450-TC; 71045-TC; 80048-TC; 80061-TC; 80076-TC; 80305; 81000-TC; 82140-TC; 82803-TC; 82962-TC; 83605-TC; 83735-TC; 84100-TC; 84443-TC; 84484-TC; 85025-TC; 85730-TC; 87081-TC; 87086-TC; 94002-TC; 94003-TC; 94799-TC; G0378; G0480; J0330; J0461; J1650; J1940; J3480; J3490; J7030; J7040; J7042; J7060

== ENCOUNTER 2019-04-02 01:07 | Inpatient (IN) | payer MEDICARE, BC, MEDICAID ==
[~2019-04-02] VITALS: Ht 170.2 cm; Wt 64.0 kg
[2019-04-02] VITALS (72 sets, daily range): BP systolic 73–149; BP diastolic 46–91
[~2019-04-02 01:07] MED LIST changes: +CLON1TAB12 PO; +ESCI20TA PO; -GABA-532 PO; -METR500T PO; +OLOP2.5D5 EACHEYE; -PRIM250T32 PO; -PROP10DR2 EACHEYE; -QUET50TA PO; +TEMA15CA PO
--- NOTE | 2019-04-02 01:15 | NUR ---
RAMSES FROM HOME. PT IS OBTUNDED. BREATHING SWALLOW. BRADYCADIC. HYPOTENSIVE. C/O OVERDOSE OF UNKNOWN AMOUNT OF CLONOPIN. PT CAME IN WITH RAC IV LINE 20G. AND L HAND 20G WITH 250ML NS RUNNING. PT PLACED ON 02 VIA NON REBREATHER MASK 15LPM. PT OE ER BED 8. AT BEDSIDE DARCY TEAGUE.
--- NOTE | 2019-04-02 01:20 | NUR ---
BLOOD DRAWN AND SENT TO LAB
[2019-04-02] MEDS ORDERED: IV NS 0.9% 1,000 ML BAG IV ONE ×2 (01:30→04:30)
[2019-04-02 01:41] LABS: BASOPHILS # (AUTO) 0.1 /CMM (0.0-0.2); EOSINOPHILS % (AUTO) 5.9 % (0.0-6.0); HEMATOCRIT 35 % (33-45); HEMOGLOBIN 12.1 g/dL (11.5-14.8); LYMPHOCYTES # (AUTO) 1.7 /CMM (0.8-4.8); LYMPHOCYTES % (AUTO) 28.7 % (20.0-44.0); MEAN CORPUSCULAR HGB CONC 35 g/dl (31.0-36.0); MEAN CORPUSCULAR VOLUME 94 fL (82-100); MONOCYTES # (AUTO) 0.4 /CMM (0.1-1.30); MONOCYTES % (AUTO) 6.9 % (2.0-12.0); NEUTROPHILS # (AUTO) 3.4 /CMM (1.8-8.9); NEUTROPHILS % (AUTO) 57.5 % (43.0-81.0); PLATELET COUNT (AUTO) 295 /CMM (150-450); RED BLOOD CELL COUNT(AUTO) 3.66 MIL/uL (4.0-5.2); WHITE BLOOD COUNT (AUTO) 5.9 K/uL (4.3-11.0)
[2019-04-02 01:49] LABS: CARBON DIOXIDE 28 mmol/L (21-32); CHLORIDE 104 mmol/L (98-107); CREATININE 0.5 mg/dL (0.6-1.3); GLUCOSE 97 mg/dL (74-106); POTASSIUM 3.3 mmol/L (3.5-5.1); SODIUM SERUM 139 mmol/L (136-145); UREA NITROGEN, BLOOD 10 mg/dL (7-18)
[2019-04-02 01:55] LABS: ALANINE AMINOTRANSFERASE 16 U/L (12-78); ALBUMIN 3.1 g/dL (3.4-5.0); ALCOHOL, BLOOD 79 mg/dL (0-0); ALKALINE PHOSPHATASE 42 U/L (46-116); ASPARTATE AMINOTRANSFERASE 16 U/L (15-37); BILIRUBIN,TOTAL 0.3 mg/dL (0.2-1.0)
[2019-04-02 01:56] LABS: ACETAMINOPHEN 0 ug/ml (10-30)
--- NOTE | 2019-04-02 01:58 | NUR ---
PT BEING WHEELE TO RADIOLOGY ON [facility]
--- NOTE | 2019-04-02 02:15 | NUR ---
URINE COLLECTED AND SENT TO LAB
--- NOTE | 2019-04-02 02:46 | NUR ---
REPORTED TO THAT BP IS 115/62. PT TRANSITION TO 02 VIA NC @ 3LPM. PT IN BED SLEEPING DEEPLY. NAD NOTED.
[2019-04-02 03:09] LABS: APPEARANCE,URINE Slightly Cloudy (CLEAR); BILIRUBIN,URINE Negative (NEGATIVE); BLOOD, URINE Negative Ery/uL (NEGATIVE); COLOR,URINE Yellow (YELLOW); KETONES,URINE Negative (NEGATIVE); LEUKOCYTE ESTERASE ,URINE Negative (NEGATIVE); NITRITE, URINE Negative (NEGATIVE); PH,URINE 6.5 (5.0-8.0); PROTEIN,URINE Negative (NEGATIVE); UGLUCOSE Negative (NEGATIVE); UROBILINOGEN,URINE 0.2 EU/dL (0.2)
--- NOTE | 2019-04-02 03:41 | NUR ---
Kwan, - , Home [phone]
--- NOTE | 2019-04-02 04:09 | NUR ---
NOTED BP AT 73/50 MD MADE AWARE. MD AT BEDSIDE. PT IS UNABLE TO AROUSE. VERBAL ORDER 1000ML NS BOLUS AND PLACE PT ON BIPAP. RT NOTIFIED
--- NOTE | 2019-04-02 04:30 | NUR ---
PT PLACED ON BIPAP PER MD VERBAL ORDER. PT UNRESPONSIVE AT THIS TIME. PT SETTINGS S/T 12 15/5 30%. MASK SECURE VIA HEAD STRAPS. AMBU BAG AT BEDSIDE ALARMS SET AND AUDIBLE. DISCONNECT ALARMS CHECKED. VENT PLUGGED INTO RED OUTLET. BLOOD PRESSURE DECREASED AT THIS TIME. HEAD OF BED AT 30 DEGREES. PT RECEIVING NO BREATHING TX AT THIS TIME Addendum: 04/02/19 at 0452 by PAPI MOBLEY RT Amended: Links added.
--- NOTE | 2019-04-02 04:30 | NUR ---
PT PLACED ON BIPAP BY RT
[2019-04-02] MEDS ORDERED: ACETAMINOPHEN 325 MG TABLET PO PRN (05:00)
[2019-04-02] MEDS ORDERED: ONDANSETRON HCL/PF 4 MG/2 ML VIAL IVP PRN (05:00)
[2019-04-02] MEDS ORDERED: IV NS 0.9% 1,000 ML IV SCH (05:00)
[2019-04-02] MEDS ORDERED: NOREPINEPHRINE 8 MG in IV D5W 500 ML IV PRN ×5 (05:00→08:00)
[2019-04-02] MEDS ORDERED: DOPamine 400MG/D5W 250ML RTU 250 ML IV ONE ×2 (05:11→06:48)
--- NOTE | 2019-04-02 05:20 | NUR ---
MD AT BEDSIDE PERFORMING CENTRAL LINE INSERTION ON R IJ.
--- NOTE | 2019-04-02 05:28 | NUR ---
RT CALLED FOR INTUBATION
[2019-04-02] MEDS ORDERED: DOPAMINE 800MG/D5W 250ML RTU PIGGYBACK IV ONE (05:30)
[2019-04-02] MEDS ORDERED: SUCCINYLCHOLINE CHLORIDE 20 MG/ML VIAL IV ONE (05:30)
[2019-04-02] MEDS ORDERED: ETOMIDATE 2 MG/ML VIAL IV ONE (05:30)
[2019-04-02] MEDS ORDERED: EPINEPHRINE (1:10,000) SYRINGE 1 MG/10 ML DISP.SYRIN ONE (05:33)
--- NOTE | 2019-04-02 05:36 | NUR ---
BP NOTED AT 97/69 HR 57 PRIOR TO INTUBATION
--- NOTE | 2019-04-02 05:37 | NUR ---
ETOMIDATE 20MG GIVEN VIA CENTRAL LINE IJ THEN FOLLOWED BY SSUCCINYLCHOLINE 120MG VIA CENTRAL LINE IJ
--- NOTE | 2019-04-02 05:38 | NUR ---
PT SUCCESSFULLY INTUBATED. BILATERAL LUNG SOUND HEARD WHILE BAGGING. GURGLING SOUND OVER ABDOMEN. PT INTUBATED WITH ET#7. 22 AT THE LIP.
[2019-04-02] MEDS ORDERED: EPINEPHRINE (1:1000) 1 MG/ML AMPUL ONE (05:42)
--- NOTE | 2019-04-02 05:42 | NUR ---
BP 70/38 HR 47. XRAY AT BEDSIDE FOR ET PLACEMENT CONFIRMATION
--- NOTE | 2019-04-02 05:45 | NUR ---
PT INTUBATED PER MD ORDER. ETT 7.0@22CM. MIST IN THE TUBE POSITIVE COLOR CHANGE ON CO2 DETECTOR BILATERAL BREATH SOUNDS EQUAL CHEST RISE.ETT SECURE AND PATENT. PT UNRESPONSIVE. AMBU BAG AT BEDSIDE ALARMS SET AND AUDIBLE. PLUGGED INTO RED OUTLET. SUCTIONED AQ SMALL AMOUNT OF THIN WHITE SECRETIONS. PT HAS DECREASED BLOOD PRESSURE AT THIS TIME MANAGED BY MEDICATION. Addendum: 04/02/19 at 0549 by PAPI MOBLEY RT Amended: Links added.
--- NOTE | 2019-04-02 05:45 | NUR ---
epinephrine drip started as per protocol.
--- NOTE | 2019-04-02 05:55 | NUR ---
VENT SETTIN AC16 VT 450 50% O PEEP
--- NOTE | 2019-04-02 06:23 | NUR ---
REPORT GIVEN TO MARIAMA REINOSO PT GOING TO 256 ICU
[2019-04-02] MEDS ORDERED: EPINEPHRINE (1:1000) 1 MG in IV D5W 250 ML IV PRN ×2 (06:30→09:00)
--- NOTE | 2019-04-02 07:14 | NUR ---
Note elías in ED - 04/02/19 at 0715 by MARCELLA pt tranported to icu rm 256 with RT, EMT and RN at bedside.
--- NOTE | 2019-04-02 07:15 | NUR ---
pt tranported to icu rm 256 with RT, EMT and RN at bedside. ACLS protocol while trasported
--- NOTE | 2019-04-02 07:17 | NUR ---
RT NOTES PT TRANSFERRED TO ICU RM 256. PT AMBU-BAG DURING TRANSPORT. PLACED ON VENT ONCE IN ROOM. VENT PLUGGED INTO RED OUTLET, VENT SETTINGS THE SAME IN ER. ALARMS SET AND AUDIBLE PER POLICY. PT ORALLY INTUBATED WITH A 7.0 AT 22CM. NO RESP. DISTRESS. AMBU BAG AT HOB.
[2019-04-02] MEDS ORDERED: IV NS 0.9% 1,000 ML IV PRN (07:24)
--- NOTE | 2019-04-02 07:30 | NUR ---
RN NOTES PT RECEIVED FROM ER IN ROOM 256, INTUBATED , VENT DEPENDENT , TOLERATING CURRENT VENT SETTING WELL, ON EPI AND DOPAMINE GTT VIA R IJ TLC, SITE CLEAN , DRY AND INTACT, ON TELE SB HR IN HIGH 40'S, PILLAI AND OG TUBE INSERTED PER PROGRAM MANAGEMENT ANALYST ORDER ,PLACEMENT OF OGT VERIFIED BY TWO RNS , PT IS NPO , L HAND AND R AC IV SITES CLEAN, DRY AND INTACT, T= 94.5, PT PLACED ON HEATING BLANKET, SR UP X3, CALL LIGHT WITHIN EASY REACH, BED LOCKED AND IN LOWEST POSITION, CONTINUE TO MONITOR AND NOTIFED MD FOR ANY SIGNIFICANT CHANGES ,
[2019-04-02 07:37] LABS: ABG BASE EXCESS -3.4 mmol/L; ABG OXYGEN SATURATION 91.3 % (92.0-98.5); ABG PCO2 46.4 mmHg (35.0-45.0); ABG PH 7.313 (7.350-7.450); ABG PO2 65.7 mmHg (75.0-100.0); AaDO2 93.7 mmHg; COHb 0.5 % (0.5-1.5); MetHb 0.6 % (0.0-1.5); O2Hb 90.3 % (94.0-97.0); PEEP,BG 0 cm H2O; SITE, ABG Right Radial; VT, ABG 450 mL
[2019-04-02] MEDS: IV NS 0.9% 1,000 ML IV PRN ×3 (08:30→23:40)
[2019-04-02] MEDS ORDERED: IV NS 0.9% 1,000 ML BAG IV PRN (08:30)
[2019-04-02] MEDS: ENOXAPARIN SODIUM 40 MG/0.4 ML DISP.SYRIN SQ SCH (08:35)
[2019-04-02] MEDS ORDERED: PANTOPRAZOLE 40 MG VIAL IV SCH (09:00)
[2019-04-02] MEDS: DOPamine 800 MG in IV D5W 250 ML IV PRN ×3 (09:41→21:48)
[2019-04-02] MEDS: POTASSIUM CL. PREMIX PERIPHER. 50 ML IV SCH ×2 (10:08→11:26)
--- NOTE | 2019-04-02 11:00 | NUR ---
RN NOTES T =98.5, VSS STABLE , CONTINUE TO MONITOR .
[2019-04-02] MEDS ORDERED: ETOMIDATE 2 MG/ML VIAL ONE (11:28)
[2019-04-02] MEDS ORDERED: SUCCINYLCHOLINE CHLORIDE 20 MG/ML VIAL ONE (11:28)
[2019-04-02] MEDS: FAMOTIDINE/PF INJ 20 MG/2 ML VIAL IV SCH (12:39)
--- NOTE | 2019-04-02 14:00 | NUR ---
RN NOTES SUPPORTIVE FAMILY AT THE BEDSIDE, VSS STABLE, CONTINUE TO MONITOR .
--- NOTE | 2019-04-02 18:51 | NUR ---
RN NOTES PT ON DOLAMIN AT 20 MCG/KG/MIN AT THIS TIME , VSS STABLE, PILLAI DRAINING TO GRAVITY , SR UP X3, CALL LIGHT WITHIN EASY REACH, BED LOCKED AND IN LOWEST POSITION, WILL ENDORSE TO STENOGRAPHER SECRETARY NURSE FOR CONTINUITY OF CARE .
[2019-04-03] VITALS (109 sets, daily range): BP systolic 18–164; BP diastolic 21–112
[2019-04-03] MEDS: DOPamine 800 MG in IV D5W 250 ML IV PRN ×4 (03:11→20:19)
[2019-04-03 05:12] LABS: BASOPHILS % (AUTO) 0.3 % (0.0-2.0); EOSINOPHILS % (AUTO) 1.4 % (0.0-6.0); HEMATOCRIT 36 % (33-45); HEMOGLOBIN 12.5 g/dL (11.5-14.8); LYMPHOCYTES # (AUTO) 1.6 /CMM (0.8-4.8); LYMPHOCYTES % (AUTO) 15.3 % (20.0-44.0); MEAN CORPUSCULAR HGB CONC 35 g/dl (31.0-36.0); MEAN CORPUSCULAR VOLUME 93 fL (82-100); MONOCYTES # (AUTO) 0.8 /CMM (0.1-1.30); MONOCYTES % (AUTO) 7.8 % (2.0-12.0); NEUTROPHILS # (AUTO) 8.1 /CMM (1.8-8.9); NEUTROPHILS % (AUTO) 75.2 % (43.0-81.0); PLATELET COUNT (AUTO) 301 /CMM (150-450); RED BLOOD CELL COUNT(AUTO) 3.82 MIL/uL (4.0-5.2); WHITE BLOOD COUNT (AUTO) 10.7 K/uL (4.3-11.0)
[2019-04-03 05:19] LABS: ALANINE AMINOTRANSFERASE 12 U/L (12-78); ALBUMIN 2.6 g/dL (3.4-5.0); ALKALINE PHOSPHATASE 37 U/L (46-116); ASPARTATE AMINOTRANSFERASE 9 U/L (15-37); BILIRUBIN,TOTAL 0.8 mg/dL (0.2-1.0); CALCIUM, SERUM 6.7 mg/dL (8.5-10.1); CARBON DIOXIDE 25 mmol/L (21-32); CHLORIDE 106 mmol/L (98-107); CREATININE 0.4 mg/dL (0.6-1.3); GLUCOSE 130 mg/dL (74-106); MAGNESIUM 1.6 mg/dL (1.8-2.4); PHOSPHORUS 2.1 mg/dL (2.5-4.9); SODIUM SERUM 139 mmol/L (136-145); TOTAL PROTEIN, SERUM 5.5 g/dL (6.4-8.2); UREA NITROGEN, BLOOD 6 mg/dL (7-18)
[2019-04-03 05:36] LABS: THYROID STIMULATING HORMONE 0.216 uIU/mL (0.358-3.74)
[2019-04-03] MEDS: ENOXAPARIN SODIUM 40 MG/0.4 ML DISP.SYRIN SQ SCH (05:44)
[2019-04-03 05:53] LABS: POTASSIUM 2.7 mmol/L (3.5-5.1)
--- NOTE | 2019-04-03 06:33 | NUR ---
ADULT HIGH SCHOOL INSTRUCTOR NOTES RECEIVED CALL FROM LAB REGARDING POTASSIUM LEVEL OF 2.7. RESULT RELAYED TO DR FINNEGAN, WITH NEW ORDER TO REPLACE WITH 60 MEQ KCL VIA IV. ORDER READ BACK FOR CLARIFICATION. CHARGE NURSE SAYDA NOTIFIED REGARDING NEW ORDERS
[2019-04-03] MEDS: POTASSIUM CL. PREMIX PERIPHER. 50 ML IV SCH ×10 (06:34→16:07)
--- NOTE | 2019-04-03 07:10 | NUR ---
RN INITIAL NOTES RECEIVED PT DROWSY. RESPONDS TO VERBAL AND TACTILE STIMULI. ABLE TO FOLLOW SIMPLE COMMANDS. PT INTUBATED, ON VENT. NO RESPIRATORY DISTRESS NOTED. NO SOB NOTED. NO SIGNS OF PAIN NOTED. RIJ IN PLACE. PT ON LEVO 1MCG/MIN AND DOPAMINE AT 30MCG/KG/MIN. WILL TITRATE ACCORDINGLY. HR ON 40-50S. OG CLAMPED. FC IN PLACE. NO HEMATURIA NOTED. PT REPOSITIONED. WILL MONITOR.
[2019-04-03] MEDS: IV NS 0.9% 1,000 ML IV PRN ×2 (08:03→15:53)
[2019-04-03] MEDS: FAMOTIDINE/PF INJ 20 MG/2 ML VIAL IV SCH (08:03)
--- NOTE | 2019-04-03 08:38 | NUR ---
WOUND CARE CONSULT: PT PRESENTS WITH RED LESION WITH BLISTERS TO SACRAL AREA EXTENDING TO RT BUTTOCK, UNKNOWN ETIOLOGY, PRESENT ON ADMISSION. NO DRAINAGE NOTED. DEFER TO MD. RECOMMENDATIONS MADE FOR SKIN PROTECTION. DISCUSSED WITH NURSING STAFF. WILL SEE PRN. PT IS CONTINENT AT THIS TIME WITH ROSAS. Addendum: 04/03/19 at 0839 by KEO TURNER WNDNU Amended: Links added.
[2019-04-03] MEDS ORDERED: Z GUARD REMEDY 4 OZ OINT TP PRN (09:00)
[2019-04-03 09:58] LABS: ABG BASE EXCESS -0.8 mmol/L; ABG OXYGEN SATURATION 97.9 % (92.0-98.5); ABG PCO2 33.5 mmHg (35.0-45.0); ABG PH 7.446 (7.350-7.450); ABG PO2 105.5 mmHg (75.0-100.0); AaDO2 105.1 mmHg; COHb 1.1 % (0.5-1.5); MetHb 0.7 % (0.0-1.5); O2Hb 96.1 % (94.0-97.0); PEEP,BG 5 cm H2O; SITE, ABG Right Radial; VENT MODE, BG SIMV PS 15
--- NOTE | 2019-04-03 10:00 | NUR ---
RN NOTES 09 SEEN AND EXAMINED BY DR BOSWELL. AWARE OF CURRENT LAB VALUES AND IMAGING RESULT. PT ON DOPAMINE DRIP AT 30MCG/KG/MIN. HR BET 40-50S. WILL CONTINUE TO MONITOR 09 SEEN AND EXAMINED BY DR GORE. PT RESPONSIVE TO VERBAL AND PAINFUL STIMULI. ABLE TO FOLLOW SIMPLE COMMANDS. PT ON SIMV MODE. AWARE OF ABG RESULT. WILL CONTINUE TO MONITOR
[2019-04-03] MEDS: Magnesium 1GM/D5W 100ML PREMIX 100 ML IV SCH ×2 (10:06→11:08)
[2019-04-03] MEDS ORDERED: POTASSIUM PHOSPHATE MM 15 MMOL in IV D5W 250 ML IV SCH (12:30)
--- NOTE | 2019-04-03 12:30 | NUR ---
RN NOTES SEEN AND EXAMINED BY DR CHAU. AWARE OF CURRENT LAB VALUES AND IMAGING RESULT. PT TOLERATING SIMV WELL. PT REMAINS ON DOPAMINE DRIP. POTASSIUM, MAGNESIUM AND PHOSPHORUS REPLACED. WILL CONTINUE TO MONITOR.
[2019-04-03] MEDS: Potassium Phosphate meq 11 MEQ in IV D5W 100 ML IV SCH ×2 (14:12→17:15)
--- NOTE | 2019-04-03 16:04 | NUR ---
Social service consult requested by Dr. Villeda for drug overdose. Pt. is currently intubated and unable to provide any information. SW to assess pt. once extubated and alert and is able to participate.
--- NOTE | 2019-04-03 18:28 | NUR ---
RN CLOSING NOTES NO SIGNIFICANT CHANGE NOTED. PT REMAINS INTUBATED. NO RESPIRATORY DISTRESS NOTED. NO SOB NOTED. NO SIGNS OF PAIN NOTED. HR REMAINS BET 40-50S. ON DOPAMINE DRIP AT 30MCG/KG/MIN. TX PROVIDED ORDERED. KEPT CLEAN AND DRY. REPOSITIONED Q2. BLE ELEVATED. WILL ENDORSE FOR CONTINUITY OF CARE.
--- NOTE | 2019-04-03 18:34 | NUR ---
RT END OF THE SHIFT REPORT, PT. 74 Y OLD FEMALE REC. @0700 AM ORALLY INTUBATED ETT # 7.0 @ 22 CM LIP LINE. T/O MORNING ON VENT WITH NOTED SETTINGS, PT. WEANING STARTED IN THE MORNING AND PLACED ON SIMV MODE AND ELIZABETH. WELL T/O DAY. ALARMS ARE SET AND FUNCTIONAL, NO DISTRESS NOTED T/O SHIFT.VENT PT. SUX'D FOR MINIMAL PALE LOSE SECRETIONS, BILATERALLY RHONCHI B/S AND EQUAL CHEST RISE NOTED. HME CHANGED, ELECTRICAL AND RADIO MECHANIC DONE. PT. REMAIN STABLE AND AMBU BAG REMAIN AT THE BEDSIDE, REPORT WILL PASS TO PM SHIFT. Addendum: 04/03/19 at 1836 by DANIELLA PAIGE RT Amended: Links added.
--- NOTE | 2019-04-03 19:30 | NUR ---
HEALTH INFORMATION CODER INITIAL SHIFT NOTES RECEIVED PATIENT IN BED, AWAKE, ALERT X1, SOMETIMES NODDING YES, LETHARGIC. PATIENT ORALLY INTUBATED, ON SIMV MODE, TOLERATING WELL, NO S/S OF RESPIRATORY DISTRESS. RIGHT IJ PATENT AND INTACT, IVF NS @ 125ML/HR, DOPAMINE GTT @ 30MCG, WILL TITRATE PATIENT TOLERATES. PILLAI CATHETER PATENT AND INTACT, DRAINING CLEAR YELLOW URINE VIA GRAVITY. HOB KEPT ELEVATED FOR ASPIRATION PRECAUTIONS. OGT PATENT AND INTACT, CLAMPED. WILL CONTINUE TO CLOSELY MONITOR
--- NOTE | 2019-04-03 20:00 | NUR ---
RN NOTES ATTEMPTED TO TITRATE DOPAMINE TO 28 MCG, PATIENT'S HR NOTED TO DROP TO 30s, BP DROP TO SBP 80s. PATIENT PLACED BACK ON DOPAMINE GTT @ 30MCG. WILL CONTINUE TO CLOSELY MONITOR
--- NOTE | 2019-04-03 20:59 | NUR ---
RECEIVED PT INTUBATED ON SIMV MODE. 7.0 ETT SECURED AT 23CM AT THE LIP. NO DISTRESS. TOLERATING VENT SETTINGS. VENT ALARMS SET AND AUDIBLE. AMBU BAG AT BEDSIDE. WILL CONTINUE TO MONITOR. Addendum: 04/03/19 at 2101 by CAESAR DAWKINS RT Amended: Links added.
[2019-04-04] VITALS (101 sets, daily range): BP systolic 84–158; BP diastolic 25–100
[2019-04-04] MEDS: IV NS 0.9% 1,000 ML IV PRN ×4 (00:17→23:56)
--- NOTE | 2019-04-04 02:00 | NUR ---
RN NOTES BED BATH RENDERED, TOLERATED WELL. WILL CONTINUE TO MONITOR
[2019-04-04] MEDS: DOPamine 800 MG in IV D5W 250 ML IV PRN ×4 (02:11→21:51)
[2019-04-04] MEDS: ENOXAPARIN SODIUM 40 MG/0.4 ML DISP.SYRIN SQ SCH (05:25)
--- NOTE | 2019-04-04 07:00 | NUR ---
TAPE LIBRARIAN INITIAL NOTES RECEIVED PT DROWSY. RESPONDS TO VERBAL AND TACTILE STIMULI. ABLE TO FOLLOW SIMPLE COMMANDS. PT INTUBATED, ON VENT. NO RESPIRATORY DISTRESS NOTED. NO SOB NOTED. NO SIGNS OF PAIN NOTED. RIJ IN PLACE. PT ON DOPAMINE AT 30MCG/KG/MIN. WILL TITRATE ACCORDINGLY. HR ON 40-50S. OG CLAMPED. FC IN PLACE. NO HEMATURIA NOTED. PT REPOSITIONED. WILL MONITOR.
--- NOTE | 2019-04-04 07:00 | NUR ---
WELLNESS PROGRAM ADMINISTRATOR CLOSING NOTES BEDSIDE REPORT GIVEN TO DAY SHIFT NURSE. PATIENT REMAINS ORALLY INTUBATED, TOLERATED SIMV MODE WELL THROUGHOUT SHIFT, NO RESPIRATORY DISTRESS NOTED. CONTINUES ON DOPAMINE GTT AT 30MCG, HR REMAINS IN THE 40s.
[2019-04-04] MEDS ORDERED: DC PROPOFOL WHEN EXTUBATED XX PRN (08:00)
[2019-04-04 08:04] LABS: BASOPHILS # (AUTO) 0.1 /CMM (0.0-0.2); BASOPHILS % (AUTO) 0.8 % (0.0-2.0); EOSINOPHILS % (AUTO) 2.8 % (0.0-6.0); HEMATOCRIT 38 % (33-45); HEMOGLOBIN 13.2 g/dL (11.5-14.8); LYMPHOCYTES # (AUTO) 2.3 /CMM (0.8-4.8); LYMPHOCYTES % (AUTO) 18.4 % (20.0-44.0); MEAN CORPUSCULAR HGB CONC 35 g/dl (31.0-36.0); MEAN CORPUSCULAR VOLUME 92 fL (82-100); MONOCYTES # (AUTO) 1.1 /CMM (0.1-1.30); NEUTROPHILS # (AUTO) 8.7 /CMM (1.8-8.9); PLATELET COUNT (AUTO) 319 /CMM (150-450); RED BLOOD CELL COUNT(AUTO) 4.13 MIL/uL (4.0-5.2); WHITE BLOOD COUNT (AUTO) 12.6 K/uL (4.3-11.0)
[2019-04-04 08:09] LABS: CALCIUM, SERUM 7.2 mg/dL (8.5-10.1); CARBON DIOXIDE 24 mmol/L (21-32); CHLORIDE 105 mmol/L (98-107); CREATININE 0.3 mg/dL (0.6-1.3); GLUCOSE 126 mg/dL (74-106); SODIUM SERUM 138 mmol/L (136-145); UREA NITROGEN, BLOOD 3 mg/dL (7-18)
[2019-04-04 08:15] LABS: ALANINE AMINOTRANSFERASE 13 U/L (12-78); ALBUMIN 2.7 g/dL (3.4-5.0); ALKALINE PHOSPHATASE 43 U/L (46-116); ASPARTATE AMINOTRANSFERASE 12 U/L (15-37); BILIRUBIN,TOTAL 0.9 mg/dL (0.2-1.0); MAGNESIUM 2.1 mg/dL (1.8-2.4); PHOSPHORUS 1.4 mg/dL (2.5-4.9); TOTAL PROTEIN, SERUM 6.1 g/dL (6.4-8.2)
[2019-04-04] MEDS: FAMOTIDINE/PF INJ 20 MG/2 ML VIAL IV SCH (08:29)
[2019-04-04 08:41] LABS: ABG BASE EXCESS -1.4 mmol/L; ABG OXYGEN SATURATION 98.1 % (92.0-98.5); ABG PCO2 29.9 mmHg (35.0-45.0); ABG PH 7.469 (7.350-7.450); ABG PO2 113.2 mmHg (75.0-100.0); AaDO2 101.6 mmHg; COHb 0.7 % (0.5-1.5); MetHb 0.5 % (0.0-1.5); O2Hb 96.9 % (94.0-97.0); SITE, ABG Right Radial
--- NOTE | 2019-04-04 08:45 | NUR ---
LEVELER HELPER NOTES SEEN AND EXAMINED BY DR. GORE, VENT CHANGE TO CPAP. RT AT BEDSIDE AND CHANGED SETTINGS. WILL CONTINUE TO MONITOR.
--- NOTE | 2019-04-04 09:00 | NUR ---
WHEAT BUYER NOTE S/P EXTUBATION, NO COMPLICATIONS NOTED, RTS AT BEDSIDE, PATIENT PLACED ON 5LPM VIA NC, SPO2 100%, WILL TITRATE TOLERATED. WILL CONTINUE TO MONITOR.
--- NOTE | 2019-04-04 09:00 | NUR ---
RT PER MD ORDERS PATIENT EXTUBATED AND PLACED ON SUPPLEMENTAL O2 ELIZABETH WELL
--- NOTE | 2019-04-04 11:07 | NUR ---
ANGELA met with pt's Kwan in pt's room bedside. Pt. is extubated at this time. Per Kwan, the reason pt's. toxicology was positive for opiates, barbiturates, benzodiazepines, cannabinoids and alcohol is because pt. takes five different medications for her severe depression, central tremors and insomnia. Kwan stated that pt. tends to get confused as to how many she needs to take and over medicated herself. Pt. does not drink alcohol, however, wanted to drink some on Tuesday and Tuesday. The gave her a shot of gingerale and vodka unknowing that pt. had over medicated on her medication. Kwan also informed SW that since pt. has insomnia, she was trying CBD oil drops but didn't care much for it. ANGELA asked Kwan, if pt. overdose was intentional. Kwan stated, " he didn't know." ANGELA informed him the psychiatrist will evaluate the pt. when she is more alert and oriented. Kwan can be reached at . ANGELA also contacted pt's daughter Johanny to inquire about pt's overdose on medication. Johanny reiterated what pt's Kwan stated above. Johanny informed SW that she had bought the CBD oil for her mother to try for insomnia, however pt. did not care too much for it. Pt. has been suffering with Severe Depression. Pt' s psychiatrist is Dr. Rodriguez. ANGELA also informed Johanny that pt. will be evaluated by the psychiatrist when she is alert and oriented. ANGELA updated ICU CRN Jose F with the aforementioned information.
[2019-04-04] MEDS: POTASSIUM CL. PREMIX PERIPHER. 50 ML IV SCH ×6 (11:30→17:03)
--- NOTE | 2019-04-04 13:20 | NUR ---
LIGHTING FIXTURES DECORATOR NOTE RT AT BEDSIDE, O2 INCREASED TO [id number] VIA SIMPLE MASK, WILL CONTINUE TO MONITOR.
[2019-04-04 13:21] LABS: ABG BASE EXCESS 1.1 mmol/L; ABG OXYGEN SATURATION 87.7 % (92.0-98.5); ABG PCO2 43.2 mmHg (35.0-45.0); ABG PO2 51.4 mmHg (75.0-100.0); AaDO2 184.1 mmHg; COHb 1.1 % (0.5-1.5); MetHb 0.6 % (0.0-1.5); O2Hb 86.2 % (94.0-97.0); SITE, ABG Left Radial; VENT MODE, BG 5L NC
[2019-04-04] MEDS: POTASSIUM PHOSPHATE MM 7.5 MMOL in IV D5W 100 ML IV SCH ×2 (14:18→17:22)
--- NOTE | 2019-04-04 15:18 | NUR ---
INSOLE TOE SNIPPING MACHINE OPERATOR NOTE CONTINUITY OF CARE ENDORSED TO JADA
--- NOTE | 2019-04-04 15:19 | NUR ---
RN NOTES RECEIVED PT ON BED, LETHARGIC , FOLLOW SIMPLE COMMANDS , ON SIMPLE MASK AT 12 L N/C , 02 SAT 98%, ON DOPAMINE AT 24MCG/KG/MIN AND NS AT 125CC/HR . R IJ TLC AND R AC IV SITES CLEAN, DRY AND INTACT, PILLAI DRINING TO GRAVITY , SR UP X3, CALL LIGHT WITHIN EASY REACH, BED LOCKED AND IN LOWEST POSITION, CONTINUE TO MONITOR .
--- NOTE | 2019-04-04 18:57 | NUR ---
RN NOTES VSS STABLE, DOPAMINE AT 20MCG/KG/MIN RUNNING AT THIS TIME, SUPPORTIVE FAMILY AT THE BEDSIDE, WILL ENDOSE TO OVEN TENDER NURSE FOR CONTINUITY OF CARE
[2019-04-05] VITALS (96 sets, daily range): BP systolic 84–145; BP diastolic 19–102
--- NOTE | 2019-04-05 | NUR ---
PT ATTEMPTED TO GET OOB AND WOULD'NT KEEP OXYGEN ON, APPLIED BILATERAL WRIST RESTRAINTS FOR HER SAFETY.
[2019-04-05 04:53] LABS: BASOPHILS % (AUTO) 0.4 % (0.0-2.0); EOSINOPHILS % (AUTO) 3.4 % (0.0-6.0); HEMATOCRIT 36 % (33-45); HEMOGLOBIN 12.6 g/dL (11.5-14.8); LYMPHOCYTES # (AUTO) 1.4 /CMM (0.8-4.8); LYMPHOCYTES % (AUTO) 13.1 % (20.0-44.0); MEAN CORPUSCULAR HGB CONC 35 g/dl (31.0-36.0); MEAN CORPUSCULAR VOLUME 93 fL (82-100); MONOCYTES # (AUTO) 0.8 /CMM (0.1-1.30); MONOCYTES % (AUTO) 7.1 % (2.0-12.0); NEUTROPHILS # (AUTO) 8.1 /CMM (1.8-8.9); PLATELET COUNT (AUTO) 265 /CMM (150-450); RED BLOOD CELL COUNT(AUTO) 3.92 MIL/uL (4.0-5.2); WHITE BLOOD COUNT (AUTO) 10.6 K/uL (4.3-11.0)
[2019-04-05] MEDS: ENOXAPARIN SODIUM 40 MG/0.4 ML DISP.SYRIN SQ SCH (05:17)
[2019-04-05 05:23] LABS: ALANINE AMINOTRANSFERASE 11 U/L (12-78); ALBUMIN 2.5 g/dL (3.4-5.0); ALKALINE PHOSPHATASE 40 U/L (46-116); ASPARTATE AMINOTRANSFERASE 10 U/L (15-37); BILIRUBIN,TOTAL 0.7 mg/dL (0.2-1.0); CARBON DIOXIDE 25 mmol/L (21-32); CHLORIDE 107 mmol/L (98-107); CREATININE 0.3 mg/dL (0.6-1.3); GLUCOSE 102 mg/dL (74-106); PHOSPHORUS 1.4 mg/dL (2.5-4.9); POTASSIUM 3.4 mmol/L (3.5-5.1); SODIUM SERUM 140 mmol/L (136-145); UREA NITROGEN, BLOOD 4 mg/dL (7-18)
--- NOTE | 2019-04-05 07:10 | NUR ---
RN NOTES RECEIVED PT ON BED, DROWSY, ORIENTED TO HER NAME, RESPONDS TO VERBAL AND TACTILE STIMULI. ABLE TO FOLLOW SIMPLE COMMANDS. ON 3L O2 N/C , O2 SAT 99%, NO SOB NOTED, ON DOPAMINE GTT AT 18MCG/KG/MIN AND NS AT 125CC/HR RUNNING VIA R IJ TLC , SITE CLEAN ,DRY AND INTACT, PT IS NPO THIS AM WAITING FOR SWALLOWING EVAL , FOLY DRAINING TO GRAVITY WITH YELLOW CLEAR URINE , SR UP x3, CALL LIGHT WITHIN EASY REACH, BED LOCKED AND IN LOWEST POSITION, CONTINUE TO MONITOR .
[2019-04-05] MEDS: IV NS 0.9% 1,000 ML IV PRN ×4 (07:11→20:30)
[2019-04-05] MEDS: DOPamine 800 MG in IV D5W 250 ML IV PRN ×2 (07:12→18:17)
[2019-04-05] MEDS ORDERED: POTASSIUM CHLORIDE 20 MEQ TAB.PRT.SR PO SCH (08:00)
[2019-04-05] MEDS: PANTOPRAZOLE 40 MG TABLET.DR PO SCH (08:15)
[2019-04-05] MEDS: NEUTRA PHOS 1 POWD.PACKET PO SCH ×2 (08:15→15:56)
[2019-04-05] MEDS ORDERED: POTASSIUM CHLORIDE 20 MEQ POWDER PACKET GT ONE (08:30)
[2019-04-05 08:53] LABS: ABG BASE EXCESS -2.4 mmol/L; ABG OXYGEN SATURATION 96.6 % (92.0-98.5); ABG PCO2 33.1 mmHg (35.0-45.0); ABG PH 7.424 (7.350-7.450); AaDO2 107.4 mmHg; COHb 1.1 % (0.5-1.5); MetHb 0.6 % (0.0-1.5); SITE, ABG Right Radial; VENT MODE, BG NASAL CANNULA
[2019-04-05] MEDS: POTASSIUM CHLORIDE 20 MEQ POWDER PACKET GT SCH ×2 (10:56→12:03)
--- NOTE | 2019-04-05 12:00 | NUR ---
RN NOTES DR GORE NOTIFED REGARDING ABG RESULTS , NO NEW ORDER GIVEN . CONTINUE TO MONITOR
--- NOTE | 2019-04-05 14:00 | NUR ---
RN NOTES PT IS MORE ALERT AND TALKATIVE , SUPPORTIVE FAMILY AT THE BEDSIDE, TOLERATING PUREED DIET WELL, CONTINUE TO MONITOR.
[2019-04-05] MEDS: HYDROCORTISONE SOD SUCCINATE 100 MG/2 ML VIAL IV SCH (16:52)
--- NOTE | 2019-04-05 18:00 | NUR ---
RN NOTES PT STILL ON DOPAMINE GTT AT 14MCG/KG/ MIN AND NS AT 250CC/HR, RUNNING VIA R IJ TLC , NO SIGNIFICANT CHANGES NOTES ON THIS SHIFT, WILL ENDOSE TO FORENSIC IDENTIFICATION SPECIALIST NURSE FOR CONTINUITY OF CARE .
--- NOTE | 2019-04-05 19:30 | NUR ---
FURNACE FITTER INITIAL SHIFT NOTES RECEIVED PATIENT IN BED, AWAKE, ALERT X1-2 WITH PERIODS OF CONFUSION. ON O2 VIA NC @ 3LPM, TOLERATING WELL NO S/S OF RESPIRATORY DISTRESS. RIGHT IJ PATENT AND INTACT, IVF NS @ 250ML/HR, DOPAMINE GTT @ 14MCG, WILL TITRATE PATIENT TOLERATES. PILLAI CATHETER PATENT AND INTACT, DRAINING CLEAR YELLOW URINE VIA GRAVITY. HOB KEPT ELEVATED FOR ASPIRATION PRECAUTIONS. WILL CONTINUE TO CLOSELY MONITOR
--- NOTE | 2019-04-05 21:30 | NUR ---
AUXILIARY EQUIPMENT TENDER NOTES FAMILY MEMBERS AT BEDSIDE. PLAN OF CARE DISCUSSED WITH FAMILY MEMBERS, ALL PERTINENT QUESTIONS ANSWERED ABLE, WITH VERBALIZATION OF UNDERSTANDING.
[2019-04-05] MEDS ORDERED: IPRATROPIUM NEB FS 0.5 MG/2.5 ML AMPUL.NEB NEB PRN (22:30)
[2019-04-05] MEDS ORDERED: ALBUTEROL FS 2.5 MG/3 ML VIAL.NEB NEB PRN (22:30)
[2019-04-06] VITALS (94 sets, daily range): BP systolic 82–159; BP diastolic 25–92
--- NOTE | 2019-04-06 03:00 | NUR ---
PRODUCT CRAFTSMAN NOTES PATIENT WITH EPISODE OF CONFUSION, PULLING ON PILLAI CATHETER AND ATTEMPTING TO CLIMB OUT OF BED. REORIENTATION EFFORT INEFFECTIVE. BILATERTAL SOFT RESTRAINTS PLACED FOR PATIENT SAFETY
[2019-04-06 04:52] LABS: BASOPHILS % (AUTO) 0.1 % (0.0-2.0); EOSINOPHILS % (AUTO) 0.1 % (0.0-6.0); HEMATOCRIT 34 % (33-45); LYMPHOCYTES # (AUTO) 1.1 /CMM (0.8-4.8); MEAN CORPUSCULAR HGB CONC 35 g/dl (31.0-36.0); MEAN CORPUSCULAR VOLUME 92 fL (82-100); MONOCYTES # (AUTO) 0.3 /CMM (0.1-1.30); MONOCYTES % (AUTO) 5.1 % (2.0-12.0); NEUTROPHILS # (AUTO) 5.4 /CMM (1.8-8.9); NEUTROPHILS % (AUTO) 78.7 % (43.0-81.0); PLATELET COUNT (AUTO) 271 /CMM (150-450); RED BLOOD CELL COUNT(AUTO) 3.68 MIL/uL (4.0-5.2); WHITE BLOOD COUNT (AUTO) 6.8 K/uL (4.3-11.0)
[2019-04-06 05:04] LABS: ALANINE AMINOTRANSFERASE 12 U/L (12-78); ALBUMIN 2.4 g/dL (3.4-5.0); ALKALINE PHOSPHATASE 39 U/L (46-116); ASPARTATE AMINOTRANSFERASE 11 U/L (15-37); BILIRUBIN,TOTAL 0.4 mg/dL (0.2-1.0); CALCIUM, SERUM 7.1 mg/dL (8.5-10.1); CARBON DIOXIDE 24 mmol/L (21-32); CHLORIDE 109 mmol/L (98-107); CREATININE 0.3 mg/dL (0.6-1.3); GLUCOSE 102 mg/dL (74-106); MAGNESIUM 1.9 mg/dL (1.8-2.4); PHOSPHORUS 2.1 mg/dL (2.5-4.9); POTASSIUM 3.3 mmol/L (3.5-5.1); SODIUM SERUM 143 mmol/L (136-145); TOTAL PROTEIN, SERUM 5.8 g/dL (6.4-8.2); UREA NITROGEN, BLOOD 4 mg/dL (7-18)
[2019-04-06] MEDS: ENOXAPARIN SODIUM 40 MG/0.4 ML DISP.SYRIN SQ SCH (05:39)
[2019-04-06] MEDS: DOPamine 800 MG in IV D5W 250 ML IV PRN (08:27)
[2019-04-06] MEDS: PANTOPRAZOLE 40 MG TABLET.DR PO SCH (08:32)
[2019-04-06] MEDS: HYDROCORTISONE SOD SUCCINATE 100 MG/2 ML VIAL IV SCH ×3 (08:33→17:15)
[2019-04-06] MEDS: NEUTRA PHOS 1 POWD.PACKET PO SCH ×2 (08:33→16:03)
[2019-04-06] MEDS: POTASSIUM CHLORIDE 20 MEQ TAB.PRT.SR PO SCH ×2 (08:33→08:55)
--- NOTE | 2019-04-06 09:57 | NUR ---
RN NOTE 0715: Received patient awake, alert to name and place. With RIJ TLC intact. On Dopamine at 10mg, will titrate as ordered. HR 40-60's. Noted with confusion at times. With SERVICE PARTS DRIVER restraints for safety. Archer cath intact, noted with pale yellow urine drained to BSD. 0830: Removed SERVICE PARTS DRIVER restraints to have breakfast, will continue to monitor. 0900: Tolerated diet well. Will keep restraints off for now. S/E by dr. Angeles, no new order at this time. 0920: S/E by with order to advance diet per MD. 0955: Still on Dopamine @ 10. at bedside, updated re: patient's condition. Will continue to monitor.
[2019-04-06] MEDS ORDERED: ZOLPIDEM TARTRATE 5 MG TABLET PO PRN (12:00)
--- NOTE | 2019-04-06 14:55 | NUR ---
RN NOTE Removed Archer as ordered, patient tolerated. Able to go to BS commode but no BM done, rendered pm care, changed linens and given wet towel bath. Placed on DVT pumps on. Family at bedside, update given.
[2019-04-06] MEDS ORDERED: POLYVINYL ALCOHOL 15 ML BOTTLE EACHEYE PRN (15:00)
--- NOTE | 2019-04-06 19:20 | NUR ---
PRINTING PRESS OPERATOR NOTE RECEIVED PATIENT RESTING WITH HOB ELEVATED, AOX2 WITH PERIODS OF CONFUSION, SR ON MONITOR, RIJ WITH DOPAMIN AT 4 MCG/KG/MIN, SKIN KEPT CLEAN AND DRY, SAFETY MAINTAINED AT ALL TIMES, BED IN LOW LOCKED POSITION, CALL LIGHT WITHIN REACH, WILL CONTINUE TO MONITOR FOR ANY CHANGES.
[2019-04-07] VITALS (70 sets, daily range): BP systolic 79–137; BP diastolic 40–79
[2019-04-07] MEDS: ENOXAPARIN SODIUM 40 MG/0.4 ML DISP.SYRIN SQ SCH (05:08)
[2019-04-07 05:14] LABS: BASOPHILS % (AUTO) 0.3 % (0.0-2.0); EOSINOPHILS % (AUTO) 0.1 % (0.0-6.0); HEMATOCRIT 32 % (33-45); HEMOGLOBIN 11.6 g/dL (11.5-14.8); LYMPHOCYTES # (AUTO) 1.5 /CMM (0.8-4.8); LYMPHOCYTES % (AUTO) 19.2 % (20.0-44.0); MEAN CORPUSCULAR HGB CONC 36 g/dl (31.0-36.0); MEAN CORPUSCULAR VOLUME 92 fL (82-100); MONOCYTES # (AUTO) 0.6 /CMM (0.1-1.30); MONOCYTES % (AUTO) 7.3 % (2.0-12.0); NEUTROPHILS # (AUTO) 5.7 /CMM (1.8-8.9); NEUTROPHILS % (AUTO) 73.1 % (43.0-81.0); PLATELET COUNT (AUTO) 277 /CMM (150-450); RED BLOOD CELL COUNT(AUTO) 3.53 MIL/uL (4.0-5.2); WHITE BLOOD COUNT (AUTO) 7.9 K/uL (4.3-11.0)
[2019-04-07 05:21] LABS: ALANINE AMINOTRANSFERASE 18 U/L (12-78); ALBUMIN 2.4 g/dL (3.4-5.0); ALKALINE PHOSPHATASE 42 U/L (46-116); ASPARTATE AMINOTRANSFERASE 16 U/L (15-37); BILIRUBIN,TOTAL 0.3 mg/dL (0.2-1.0); CALCIUM, SERUM 7.9 mg/dL (8.5-10.1); CARBON DIOXIDE 29 mmol/L (21-32); CHLORIDE 110 mmol/L (98-107); CREATININE 0.4 mg/dL (0.6-1.3); GLUCOSE 113 mg/dL (74-106); MAGNESIUM 1.9 mg/dL (1.8-2.4); PHOSPHORUS 2.5 mg/dL (2.5-4.9); POTASSIUM 3.1 mmol/L (3.5-5.1); SODIUM SERUM 145 mmol/L (136-145); TOTAL PROTEIN, SERUM 5.8 g/dL (6.4-8.2); UREA NITROGEN, BLOOD 12 mg/dL (7-18)
[2019-04-07] MEDS: PANTOPRAZOLE 40 MG TABLET.DR PO SCH (08:21)
[2019-04-07] MEDS: POTASSIUM CHLORIDE 20 MEQ TAB.PRT.SR PO SCH ×3 (08:21→12:48)
[2019-04-07] MEDS: HYDROCORTISONE SOD SUCCINATE 100 MG/2 ML VIAL IV SCH ×2 (08:21→17:25)
[2019-04-07] MEDS: IV NS 0.9% 1,000 ML IV SCH ×2 (08:23→12:47)
[2019-04-07] MEDS ORDERED: TRAZODONE 50 MG TABLET PO PRN (12:00)
[2019-04-07 17:39] LABS: APPEARANCE,URINE SL CLOUDY (CLEAR); BILIRUBIN,URINE NEGATIVE (NEGATIVE); BLOOD, URINE NEGATIVE Ery/uL (NEGATIVE); COLOR,URINE YELLOW (YELLOW); KETONES,URINE NEGATIVE (NEGATIVE); LEUKOCYTE ESTERASE ,URINE 3+ (NEGATIVE); NITRITE, URINE NEGATIVE (NEGATIVE); PROTEIN,URINE NEGATIVE (NEGATIVE); UGLUCOSE NEGATIVE (NEGATIVE); UROBILINOGEN,URINE 0.2 EU/dL (0.2)
[2019-04-07 17:56] LABS: BACTERIA,URINE Few /HPF (None Seen); RBC,URINE 0-2 /HPF (0-2); SQUAMOUS EPITHELIAL CELL,UR Few /HPF (None Seen)
--- NOTE | 2019-04-07 18:20 | NUR ---
RN NOTE 0715: Received patient awake, A/Ox3. No respiratory distress noted. Removed O2 via NC, will monitor for O2 sat. RIJ TLC intact. RAC PIV intact. On Dopamin drip, will titrate as ordered. Able to inform staffs for assistance. 0900: 97% O2 sat on room air. 0920: S/E by Dr. Angeles, with order of changing Ambien to Trazodone. 1130: With c/o burning sensation during urination, made ELECTRICAL TEST TECHNICIAN aware, with order to send specimen for UA and CS. 1145: Turned off Dopamine, will monitor BP and HR. 1400: S/E by Epifanio GODINEZ. Followed up with GPS re: psyche consult, Dr. Friend will see patient tomorrow, Epifanio ELECTRICAL TEST TECHNICIAN aware. 1600: Assisted patient on getting bed bath. Changed linens. 1820: No any significant changes noted at this time. Tolerated off Dopamine. Kept clean, warm and dry. Needs attended. Kept call light at reach. Will endorse to next shift. VSS at this time. Prelim result of UA in, patient made aware.
--- NOTE | 2019-04-07 19:45 | NUR ---
RN NOTE: RECEIVED PT ON BED ALERT AND ORIENTED X3. ABLE TO MAKE NEEDS KNOWN. NO APPARENT DISTRESS NOTED. NO COMPLAINTS OF PAIN OR DISCOMFORT. ON ROOM AIR, SATURATING WELL. NO SOB NOTED. VITAL SIGNS WNL AT THIS TIME. ON BEDSIDE MONITOR SINUS RHYTHM HR 69BPM. RIGHT INTAJUGULAR TLC AND RIGHT ANTECUBITAL #20 INTACT AND PATENT, FLUSHING WELL. ENCOURAGED PT TO VERBALIZE NEEDS AND CONCERNS AND TO CALL FOR ASSISTANCE IF NEEDED. CALL LIGHT PLACED WITHIN REACH. SAFETY AND FALL PRECAUTIONS OBSERVED AND MAINTAINED. WILL CONTINUE TO MONITOR PT.
[2019-04-08] VITALS (16 sets, daily range): BP systolic 92–124; BP diastolic 42–72
[2019-04-08 04:48] LABS: BASOPHILS % (AUTO) 0.1 % (0.0-2.0); EOSINOPHILS % (AUTO) 0.1 % (0.0-6.0); HEMATOCRIT 29 % (33-45); HEMOGLOBIN 10.4 g/dL (11.5-14.8); LYMPHOCYTES # (AUTO) 1.7 /CMM (0.8-4.8); LYMPHOCYTES % (AUTO) 25.7 % (20.0-44.0); MEAN CORPUSCULAR HGB CONC 35 g/dl (31.0-36.0); MEAN CORPUSCULAR VOLUME 92 fL (82-100); MONOCYTES # (AUTO) 0.6 /CMM (0.1-1.30); MONOCYTES % (AUTO) 8.4 % (2.0-12.0); NEUTROPHILS # (AUTO) 4.4 /CMM (1.8-8.9); NEUTROPHILS % (AUTO) 65.7 % (43.0-81.0); PLATELET COUNT (AUTO) 287 /CMM (150-450); RED BLOOD CELL COUNT(AUTO) 3.18 MIL/uL (4.0-5.2); WHITE BLOOD COUNT (AUTO) 6.7 K/uL (4.3-11.0)
[2019-04-08 05:07] LABS: CALCIUM, SERUM 7.6 mg/dL (8.5-10.1); CARBON DIOXIDE 25 mmol/L (21-32); CHLORIDE 113 mmol/L (98-107); CREATININE 0.5 mg/dL (0.6-1.3); GLUCOSE 99 mg/dL (74-106); MAGNESIUM 1.9 mg/dL (1.8-2.4); PHOSPHORUS 3.2 mg/dL (2.5-4.9); POTASSIUM 3.4 mmol/L (3.5-5.1); SODIUM SERUM 146 mmol/L (136-145); UREA NITROGEN, BLOOD 19 mg/dL (7-18)
[2019-04-08] MEDS: ENOXAPARIN SODIUM 40 MG/0.4 ML DISP.SYRIN SQ SCH (05:20)
--- NOTE | 2019-04-08 06:30 | NUR ---
RN NOTE: NO CHANGES NOTED THROUGHOUT THE SHIFT. NO APPARENT DISTRESS NOTED. DENIES PAIN AND DISCOMFORT AT THIS TIME. ON 2LPM NASAL CANNULA, NO SOB NOTED. O2 SAT 97%. BP WNL. NO EPISODES OF HYPOTENSION NOTED. ON BEDSIDE MONITOR SINUS RHYTHM HR 60BPM. AM CARE DONE. PT KEPT CLEAN, DRY AND COMFORTABLE. CALL LIGHT PLACED WITHIN REACH. SAFETY AND FALL PRECAUTIONS OBSERVED AND MAINTAINED. WILL ENDORSE TO DAY SHIFT RN FOR CONTINUITY OF CARE.
--- NOTE | 2019-04-08 07:30 | NUR ---
PRODUCTION GEAR CUTTER INITIAL NOTE RECEIVED PATIENT AWAKE A/OX3, ABLE TO MAKE NEEDS KNOWN. NO RESPIRATORY DISTRESS NOTED ON 2LPMO2 VIA NC. ON TELE MONITOR SB 57. DENIES PAIN OR DISCOMFORT. SKIN WARM AND DRY TO TOUCH. PENDING PSYCH EVAL WITH DR. HUNT. RIJ PATENT AND INTACT. HOB ELEVATED. SIDE RAILS UP AND LOCKED. BED KEPT AT LOWEST POSITION. CALL LIGHT KEPT WITHIN EASY REACH. WILL CONTINUE TO MONITOR.
--- NOTE | 2019-04-08 08:07 | NUR ---
RESIDENTIAL FINISH CARPENTER NOTE SEEN AND EXAMINED BY DR. GORE
--- NOTE | 2019-04-08 08:28 | NUR ---
CREDIT AND LOAN COLLECTIONS SUPERVISOR NOTE EATING BREAKFAST. DR. BOSWELL AT BEDSIDE
[2019-04-08] MEDS ORDERED: POTASSIUM CHLORIDE 20 MEQ TAB.PRT.SR PO SCH (08:30)
--- NOTE | 2019-04-08 09:10 | NUR ---
WAREHOUSE SHIPPING ASSOCIATE NOTE ASSISTED PATIENT TO BEDSIDE COMMODE WITH NO COMPLICATIONS
[2019-04-08 09:26] LABS: IRON, SERUM 72 ug/dl (50-175); TOTAL IRON BINDING CAPACITY 169 ug/dl (250-450)
[2019-04-08 09:39] LABS: FERRITIN 292 ng/mL (8-388)
[2019-04-08] MEDS: POTASSIUM CHLORIDE 20 MEQ TAB.PRT.SR PO SCH ×3 (09:51→12:15)
[2019-04-08] MEDS: PANTOPRAZOLE 40 MG TABLET.DR PO SCH (09:52)
--- NOTE | 2019-04-08 10:02 | NUR ---
ALGORITHM DESIGN ENGINEER NOTE PENDING ABDONKAYLA, MEDICINE NOT AVAILABLE, WAITING FOR PHARMACY
[2019-04-08] MEDS: HYDROCORTISONE SOD SUCCINATE 100 MG/2 ML VIAL IV SCH (11:03)
--- NOTE | 2019-04-08 11:03 | NUR ---
GOLF PROFESSIONAL NOTE DR. HUNT AT BEDSIDE
--- NOTE | 2019-04-08 11:45 | NUR ---
TILT TRAY DRIVER NOTE PER NELSON LEGGETT TO TRANSFER PATIENT TO MED/SURG, SITTER NOT NEEDED.
--- NOTE | 2019-04-08 14:00 | NUR ---
MS OIM CONSULTANT NOTE PT TRANSFERRED FROM ICU TO MS 2 RM 201 IN STABLE CONDITION VIA WC. PT IS A/O X4, AFEBRILE. RESPIRATIONS ARE EVEN AND UNLABORED, NOT IN ANY ACUTE DISTRESS NOTED. PT DENIES ANY PAIN AT THIS TIME, NO C/O SOB, N/V. PUPILS ARE REACTIVE TO LIGHT, BILATERAL HAND ENGINE SERVICE REPAIRER ARE STRONG AND EQUAL. ABDOMEN IS SOFT AND NONDISTENDED, BOWEL SOUNDS ARE PRESENT IN ALL 4 QUADRANTS UPON AUSCULTATION. DENIES ANY BLADDER DISCOMFORT. PT ABLE TO TRANSFER [place] [facility] [place]. SACRAL REDNESS NOTED AND DISCOLORATION TO RUE. RIGHT IJ INTACT, NO INFILTRATION NOTED. DRESSING KEPT CLEAN AND DRY. ALL BELONGINGS ACCOUNTED FOR. SAFETY MEASURES ARE IN PLACE. INSTRUCTED PT TO USE CALL LIGHT WHEN ASSISTANCE IS NEEDED, CALL LIGHT IS LEFT WITHIN REACH. WILL CONTINUE TO MONITOR THROUGHOUT SHIFT FOR CONTINUITY OF CARE.
--- NOTE | 2019-04-08 14:21 | NUR ---
horticultural agent note transferred patient via wheelchair with all her belongings. friend at bedside. report given to MARIAMA Espinosa
--- NOTE | 2019-04-08 16:00 | NUR ---
MS RN NOTES-- RELAYED URINE CX RESULTS TO DR. BARRAGAN AND STATED HE WILL LOOK INTO IT.
[2019-04-08] MEDS: busPIRone 5 MG TABLET PO SCH ×2 (17:00→17:25)
[2019-04-08] MEDS: clonazePAM 0.5 MG TABLET PO SCH (17:25)
[2019-04-08] MEDS: SERTRALINE HCL 25 MG TABLET PO SCH (17:25)
--- NOTE | 2019-04-08 18:20 | NUR ---
MS RN CLOSING NOTES ALL DUE MEDS GIVEN, NEEDS MET AND RENDERED. PT IS A/O X4, AFEBRILE. RESPIRATIONS ARE EVEN AND UNLABORED, NOT IN ANY ACUTE DISTRESS NOTED. PT DENIES ANY PAIN AT THIS TIME, NO C/O SOB, N/V. IV SITE TO RIJ INTACT, NO INFILTRATION NOTED. DRESSING KEPT CLEAN AND DRY. SAFETY MEASURES ARE IN PLACE. REMINDED PT TO USE CALL LIGHT WHEN ASSISTNACE IS NEEDED, CALL LIGHT IS LEFT WITHIN REACH. WILL ENDORSE TO NEXT SHIFT FOR CONTINUITY OF CARE.
--- NOTE | 2019-04-08 19:25 | NUR ---
RN OPEN NOTES RECEIVED PATIENT AWAKE IN BED. A/O X4. NO SIGNS OF DISTRESS OR DISCOMFORT. BREATHING EVEN AND UNLABORED. IV ACCESS IN RIJ, PATENT AND INTACT, NO SIGNS OF REDNESS OR INFILTRATION. BED IN LOW LOCKED POSITION WITH SIDE RAILS X2. CALL LIGHT WITHIN REACH. WILL CONTINUE TO MONITOR.
[2019-04-08] MEDS ORDERED: CEFTRIAXONE 1 G in IV D5W 50 ML IV SCH (20:00)
[2019-04-08] MEDS: risperiDONE 0.25 MG TABLET PO SCH (22:18)
[2019-04-09] MEDS: ENOXAPARIN SODIUM 40 MG/0.4 ML DISP.SYRIN SQ SCH (05:46)
--- NOTE | 2019-04-09 07:19 | NUR ---
RN CLOSING NOTES PATIENT AWAKE IN BED. A/O X4. NO SIGNS OF DISTRESS OR DISCOMFORT. BREATHING EVEN AND UNLABORED. IV ACCESS IN RIJ, PATENT AND INTACT, NO SIGNS OF REDNESS OR INFILTRATION. ALL NEEDS MET. NO SIGNIFICANT CHANGES THROUGH THE NIGHT. BED IN LOW LOCKED POSITION WITH SIDE RAILS X2. CALL LIGHT WITHIN REACH. ADVISED PATIENT TO USE CALL LIGHT FOR ASSISTANCE. ENDORSED TO AM SHIFT FOR RAMESH.
--- NOTE | 2019-04-09 07:35 | NUR ---
MS RN OPENING NOTES RECEIVED PT LAYING IN BED WITH HOB ELEVATED. PT IS A/O X4, AFEBRILE. RESPIRATIONS ARE EVEN AND UNLABORED, NOT IN ANY ACUTE DISTRESS NOTED. PT DENIES ANY PAIN AT THIS TIME, NO C/O SOB, N/V. IV ACCESS TO RIJ INTACT, NO INFILTRATION NOTED. DRESSING KEPT CLEAN AND DRY. SAFETY MEASURES ARE IN PLACE. INSTRUCTED PT TO USE CALL LIGHT WHEN ASSISTANCE IS NEEDED, CALL LIGHT IS LEFT WITHIN REACH. WILL MONITOR THROUGHOUT SHIFT FOR CONTINUITY OF CARE.
[2019-04-09 08:00] VITALS: BP 130/70
[2019-04-09 08:29] LABS: CALCIUM, SERUM 7.7 mg/dL (8.5-10.1); CARBON DIOXIDE 28 mmol/L (21-32); CHLORIDE 110 mmol/L (98-107); CREATININE 0.5 mg/dL (0.6-1.3); GLUCOSE 76 mg/dL (74-106); SODIUM SERUM 147 mmol/L (136-145); UREA NITROGEN, BLOOD 10 mg/dL (7-18)
[2019-04-09 08:33] LABS: POTASSIUM 2.8 mmol/L (3.5-5.1)
[2019-04-09] MEDS: PANTOPRAZOLE 40 MG TABLET.DR PO SCH (08:45)
[2019-04-09] MEDS: busPIRone 5 MG TABLET PO SCH ×3 (08:46→16:56)
[2019-04-09] MEDS: clonazePAM 0.5 MG TABLET PO SCH ×3 (08:46→16:56)
[2019-04-09] MEDS ORDERED: HYDROCORTISONE SOD SUCCINATE 100 MG/2 ML VIAL IV SCH (09:00)
--- NOTE | 2019-04-09 09:24 | NUR ---
MS RN NOTES-- PT WAS SEEN AND EXAMINED BY DR. GORE W/ ORDERS TO D/C LOVENOX AND CHANGE SOLU-CORTEF TO 50MG IVP DAILY. ORDERS READ BACK AND VERIFIED, NOTED AND CARRIED OUT. PT MADE AWARE AT BEDSIDE.
[2019-04-09] MEDS: POTASSIUM CHLORIDE 20 MEQ TAB.PRT.SR PO SCH ×5 (11:01→14:19)
--- NOTE | 2019-04-09 13:39 | NUR ---
MS RN NOTES-- PER DR. GORE, TO REMOVE RIJ CENTRAL LINE AND TO INSERT NEW PERIPHERAL IV. PERIPHERAL IV INSERTION TO LEFT HAND G20. RIJ REMOVED PER PROTOCOL. PT TOLERATED WELL. WILL CONTINUE TO MONITOR.
[2019-04-09 16:00] VITALS: BP 109/70
[2019-04-09] MEDS: SERTRALINE HCL 25 MG TABLET PO SCH (16:56)
--- NOTE | 2019-04-09 18:43 | NUR ---
MS RN CLOSING NOTES ALL DUE MEDS GIVEN, NEEDS MET AND RENDERED. PT IS A/O X4, AFEBRILE. RESPIRATIONS ARE EVEN AND UNLABORED, NOT IN ANY ACUTE DISTRESS NOTED. PT DENIES ANY PAIN AT THIS TIME, NO C/O SOB, N/V. IV SITE TO LFA G22 INTACT, NO INFILTRATION NOTED. DRESSING KEPT CLEAN AND DRY. SAFETY MEASURES ARE IN PLACE. REMINDED PT TO USE CALL LIGHT WHEN ASSISTNACE IS NEEDED, CALL LIGHT IS LEFT WITHIN REACH. WILL ENDORSE TO NEXT SHIFT FOR CONTINUITY OF CARE.
--- NOTE | 2019-04-09 19:40 | NUR ---
MS RN NOTE: PATIENT RESTING IN BED, NO ACUTE DISTRESS NOTED. BREATHING EVEN AND UNLABORED, NO SOB NOTED. IV TO LFA IN PLACE. BED LOCKED AND IN LOWEST POSITION, CALL LIGHT IN REACH. WILL CONTINUE TO MONITOR.
[2019-04-09 20:24] VITALS: BP 97/60
[2019-04-09 20:44] LABS: CHLORIDE,URINE RANDOM 183 mmol/L (55-125); POTASSIUM RNDM,URINE 69 mmol/L (25-125); URINE SODIUM, RANDOM 108 mmol/l (40-220)
[2019-04-09] MEDS: risperiDONE 0.25 MG TABLET PO SCH (21:03)
[2019-04-09] MEDS: NITROFURANTOIN/NITROFURAN MAC 100 MG CAPSULE PO SCH (21:03)
[2019-04-09 21:31] LABS: OSMOLALITY,URINE 516 mOS/kg (340-1090)
--- NOTE | 2019-04-10 03:00 | NUR ---
MS RN NOTE: PATIENT SLEEPING IN BED, NO ACUTE DISTRESS NOTED. BREATHING EVEN AND UNLABORED, NO SOB NOTED. BED LOCKED AND IN LOWEST POSITION, CALL LIGHT IN REACH. WILL CONTINUE TO MONITOR.
--- NOTE | 2019-04-10 06:05 | NUR ---
MS RN NOTE: PATIENT RESTING IN BED, NO ACUTE DISTRESS NOTED. BREATHING EVEN AND UNLABORED, NO SOB NOTED. IV TO LFA IN PLACE. BED LOCKED AND IN LOWEST POSITION, CALL LIGHT IN REACH. WILL ENDORSE TO DAY NURSE TO CONTINUE WITH PLAN OF CARE.
[2019-04-10 06:47] LABS: BASOPHILS % (AUTO) 0.3 % (0.0-2.0); EOSINOPHILS % (AUTO) 2.9 % (0.0-6.0); HEMATOCRIT 31 % (33-45); LYMPHOCYTES # (AUTO) 3.3 /CMM (0.8-4.8); LYMPHOCYTES % (AUTO) 44.2 % (20.0-44.0); MEAN CORPUSCULAR HGB CONC 35 g/dl (31.0-36.0); MEAN CORPUSCULAR VOLUME 92 fL (82-100); MONOCYTES # (AUTO) 0.6 /CMM (0.1-1.30); MONOCYTES % (AUTO) 8.2 % (2.0-12.0); NEUTROPHILS # (AUTO) 3.3 /CMM (1.8-8.9); NEUTROPHILS % (AUTO) 44.4 % (43.0-81.0); PLATELET COUNT (AUTO) 279 /CMM (150-450); RED BLOOD CELL COUNT(AUTO) 3.37 MIL/uL (4.0-5.2); WHITE BLOOD COUNT (AUTO) 7.4 K/uL (4.3-11.0)
[2019-04-10 06:55] LABS: ALANINE AMINOTRANSFERASE 45 U/L (12-78); ALBUMIN 2.7 g/dL (3.4-5.0); ALKALINE PHOSPHATASE 39 U/L (46-116); ASPARTATE AMINOTRANSFERASE 31 U/L (15-37); BILIRUBIN,TOTAL 0.4 mg/dL (0.2-1.0); CALCIUM, SERUM 8.5 mg/dL (8.5-10.1); CARBON DIOXIDE 30 mmol/L (21-32); CHLORIDE 107 mmol/L (98-107); CREATININE 0.4 mg/dL (0.6-1.3); GLUCOSE 79 mg/dL (74-106); MAGNESIUM 1.8 mg/dL (1.8-2.4); PHOSPHORUS 4.1 mg/dL (2.5-4.9); POTASSIUM 3.4 mmol/L (3.5-5.1); SODIUM SERUM 143 mmol/L (136-145); TOTAL PROTEIN, SERUM 5.5 g/dL (6.4-8.2); UREA NITROGEN, BLOOD 10 mg/dL (7-18)
[2019-04-10 06:57] LABS: THYROID STIMULATING HORMONE 2.228 uIU/mL (0.358-3.74)
--- NOTE | 2019-04-10 07:27 | NUR ---
MS RN OPENING NOTES RECEIVED PT LAYING IN BED WITH HOB ELEVATED. PT IS A/O X4, AFEBRILE. RESPIRATIONS ARE EVEN AND UNLABORED, NOT IN ANY ACUTE DISTRESS NOTED. PT DENIES ANY PAIN AT THIS TIME, NO C/O SOB, N/V. IV ACCESS LFA INTACT, NO INFILTRATION NOTED. DRESSING KEPT CLEAN AND DRY. SAFETY MEASURES ARE IN PLACE. INSTRUCTED PT TO USE CALL LIGHT WHEN ASSISTANCE IS NEEDED, CALL LIGHT IS LEFT WITHIN REACH. WILL MONITOR THROUGHOUT SHIFT FOR CONTINUITY OF CARE.
[2019-04-10 08:00] VITALS: BP 126/72
[2019-04-10] MEDS: clonazePAM 0.5 MG TABLET PO SCH ×3 (08:37→16:15)
[2019-04-10] MEDS: busPIRone 5 MG TABLET PO SCH ×3 (08:37→16:15)
[2019-04-10] MEDS: NITROFURANTOIN/NITROFURAN MAC 100 MG CAPSULE PO SCH (08:37)
[2019-04-10] MEDS: PANTOPRAZOLE 40 MG TABLET.DR PO SCH (08:37)
[2019-04-10] MEDS ORDERED: HYDROCORTISONE SOD SUCCINATE 100 MG/2 ML VIAL IV SCH (09:00)
[2019-04-10] MEDS ORDERED: SPIRONOLACTONE 25 MG TABLET PO SCH (10:30)
[2019-04-10] MEDS ORDERED: POTASSIUM CHLORIDE 20 MEQ TAB.PRT.SR PO SCH (12:00)
--- NOTE | 2019-04-10 12:45 | NUR ---
MS RN NOTES-- PT ABLE TO MAKE NEEDS KNOWN. NEEDS MET AND RENDERED. PT IS NOT IN ANY APPARENT DISTRESS NOTED. WILL CONTINUE TO MONITOR.
[2019-04-10] MEDS ORDERED: CLON0.5T12 PO (13:19)
[2019-04-10] MEDS ORDERED: NITR100C15 PO (13:19)
[2019-04-10] MEDS ORDERED: RISP0.253 PO (13:19)
[2019-04-10] MEDS ORDERED: SPIR25TA PO (13:19)
[2019-04-10] MEDS ORDERED: SERT25TA5 PO (13:19)
[2019-04-10] MEDS ORDERED: BUSP5TAB3 PO (13:19)
[2019-04-10] MEDS: SERTRALINE HCL 25 MG TABLET PO SCH (16:15)
--- NOTE | 2019-04-10 17:00 | NUR ---
MS ABALONE FISHERMAN NOTE PT DISCHARGE TO HOME IN STABLE CONDITION ACCOMPANIED BY AND DTR. PT IS A/O 4, AFEBRILE. RESPIRATIONS ARE EVEN AND UNLABORED, NOT IN ANY ACUTE DISTRESS NOTED. PUPILS ARE REACTIVE TO LIGHT, BILATERAL HAND QUALITY PROCESS LEAD ARE STRONG AND EQUAL. DENIES ANY PAIN AT THIS TIME, NO C/O SOB, N/V. ABDOMEN IS SOFT AND NONDISTENDED, BOWEL SOUNDS ARE PRESENT IN ALL 4 QUADRANTS UPON AUSCULTATION. DENIES ANY BLADDER DISCOMFORT. PT IS CONTINENT AND AMBULATORY. IV ACCESS REMOVED, APPLIED PRESSURE AND TOLERATED WELL. PICTURES TAKEN TO LEFT ARM NOTED WITH DISCOLORATION AND SACRAL REDNESS. PHOTOS PLACED IN CHART. EXPLAINED DISCHARGE PAPERWORK TO PT, AND DTR AT BEDSIDE WITH VERBAL AND WRITTEN UNDERSTANDING. ID BANDS REMOVED. ALL BELONGINGS SENT WITH PT. PT LEFT IN STABLE CONDITION.
[2019-04-11] MEDS ORDERED: HYDROCORTISONE SOD SUCCINATE 100 MG/2 ML VIAL IV SCH (09:00)
== END 2019-04-10 17:00 | disposition home or self-care (01) | DRG 917 ==
LOC: ER 01:08 → ICU 04:21 → MEDSG2 04-08 13:50
PROVIDERS: ADMIT Nurse Practitioner Acute Care; ATTEND Student in an Organized Health Care Education/Training Program
PROC: 5A1945Z Respiratory Ventilation, 24-96 Consecutive Hours (ICD-10-PCS; principal; 2019-04-02)
PROC: 0BH17EZ Insertion of Endotracheal Airway into Trachea, Via Natural or Artificial Opening (ICD-10-PCS; 2019-04-02)
DX: T42.4X1A Poisoning by benzodiazepines, accidental (unintentional), initial encounter (principal); G92 Toxic encephalopathy; J96.01 Acute respiratory failure with hypoxia; J69.0 Pneumonitis due to inhalation of food and vomit; E87.0 Hyperosmolality and hypernatremia; E27.40 Unspecified adrenocortical insufficiency; E44.1 Mild protein-calorie malnutrition; N39.0 Urinary tract infection, site not specified; J98.11 Atelectasis; Y92.89 Other specified places as the place of occurrence of the external cause; M19.90 Unspecified osteoarthritis, unspecified site; M81.0 Age-related osteoporosis without current pathological fracture; Z98.890 Other specified postprocedural states; Z88.5 Allergy status to narcotic agent; Z90.49 Acquired absence of other specified parts of digestive tract; Z87.891 Personal history of nicotine dependence; Z79.899 Other long term (current) drug therapy; K21.9 Gastro-esophageal reflux disease without esophagitis; E83.42 Hypomagnesemia; F43.10 Post-traumatic stress disorder, unspecified; F32.9 Major depressive disorder, single episode, unspecified; F41.9 Anxiety disorder, unspecified; G25.0 Essential tremor; G47.00 Insomnia, unspecified; E83.39 Other disorders of phosphorus metabolism; E87.6 Hypokalemia; T40.601A Poisoning by unspecified narcotics, accidental (unintentional), initial encounter; T42.3X1A Poisoning by barbiturates, accidental (unintentional), initial encounter; T40.7X1A Poisoning by cannabis (derivatives), accidental (unintentional), initial encounter; T51.91XA Toxic effect of unspecified alcohol, accidental (unintentional), initial encounter; Y92.9 Unspecified place or not applicable; F42.9 Obsessive-compulsive disorder, unspecified; F39 Unspecified mood [affective] disorder; I70.0 Atherosclerosis of aorta; Z16.12 Extended spectrum beta lactamase (ESBL) resistance; E87.5 Hyperkalemia; T38.0X5A Adverse effect of glucocorticoids and synthetic analogues, initial encounter
CPT/HCPCS: 31720; 36415; 36600; 70450-TC; 71045-TC; 80048-TC; 80053-TC; 80076-TC; 80305; 81000-TC; 82436-TC; 82533; 82728-TC; 82803-TC; 83540-TC; 83735-TC; 83935-TC; 84100-TC; 84133-TC; 84244; 84300-TC; 84439-TC; 84443-TC; 84484-TC; 85025-TC; 87081-TC; 87086-TC; 87186-TC; 92526; 92611-TC; 93307-TC; 94002-TC; 94003-TC; 94760-TC; 94799-TC; 99082-TC; C1751; G0378; G0480; J0171; J0330; J0696; J1265; J1650; J1720; J3475; J3480; J3490; J7030; J7050; J7060

== ENCOUNTER 2023-07-21 13:03 | Emergency (ER) | payer MEDICARE, BC, OTHER ==
[~2023-07-21] VITALS: Ht 170.2 cm; Wt 63.0 kg
[~2023-07-21 13:03] MED LIST changes: +BUSP5TAB3 PO; +CLON0.5T4 PO; -CLON1TAB PO; -CLON1TAB12 PO; -ESCI20TA PO; +NITR100C15 PO; -OLOP2.5D5 EACHEYE; +RISP0.253 PO; +SERT25TA5 PO; +SPIR25TA PO; -TEMA15CA PO
[2023-07-21] MEDS ORDERED: IV NS 0.9% 1,000 ML IV ONE (14:30)
[2023-07-21 15:00] LABS: BASOPHILS # (AUTO) 0.1 K/uL (0.0-0.2); BASOPHILS % (AUTO) 0.8 % (0.0-2.0); EOSINOPHILS # (AUTO) 0.4 K/uL (0.0-0.7); EOSINOPHILS % (AUTO) 5.6 % (0.0-6.0); HEMATOCRIT 38 % (33-45); HEMOGLOBIN 13.1 g/dL (11.5-14.8); LYMPHOCYTES # (AUTO) 2.2 K/uL (0.8-4.8); LYMPHOCYTES % (AUTO) 33.4 % (20.0-44.0); MEAN CORPUSCULAR HEMOGLOBIN 31 PG (26.0-33.0); MEAN CORPUSCULAR HGB CONC 34 g/dl (31.0-36.0); MEAN CORPUSCULAR VOLUME 91 fL (82-100); MONOCYTES # (AUTO) 0.4 K/uL (0.1-1.30); MONOCYTES % (AUTO) 5.8 % (2.0-12.0); NEUTROPHILS # (AUTO) 3.6 K/uL (1.8-8.9); NEUTROPHILS % (AUTO) 54.4 % (43.0-81.0); PLATELET COUNT (AUTO) 263 K/uL (150-450); RED BLOOD CELL COUNT(AUTO) 4.21 MIL/uL (4.0-5.2); RED CELL DISTRIBUTION WIDTH 14.6 % (11.5-15.0); WHITE BLOOD COUNT (AUTO) 6.5 K/uL (4.3-11.0)
[2023-07-21 15:06] LABS: CALCIUM, SERUM 8.6 mg/dL (8.5-10.1); CREATININE 0.6 mg/dL (0.6-1.3); POTASSIUM 4.3 mmol/L (3.5-5.1)
[2023-07-21 15:14] LABS: ALBUMIN 3.9 g/dL (3.4-5.0); BILIRUBIN,DIRECT 0.1 mg/dL (0.0-0.2); BILIRUBIN,TOTAL 0.4 mg/dL (0.2-1.0); TOTAL PROTEIN, SERUM 7.2 g/dL (6.4-8.2)
[2023-07-21 17:41] LABS: APPEARANCE,URINE CLEAR (CLEAR); BILIRUBIN,URINE NEGATIVE (NEGATIVE); BLOOD, URINE TRACE-INTA Ery/uL (NEGATIVE); COLOR,URINE YELLOW (YELLOW); KETONES,URINE NEGATIVE (NEGATIVE); LEUKOCYTE ESTERASE ,URINE NEGATIVE (NEGATIVE); NITRITE, URINE NEGATIVE (NEGATIVE); PROTEIN,URINE NEGATIVE (NEGATIVE); UGLUCOSE NEGATIVE (NEGATIVE); UROBILINOGEN,URINE 0.2 EU/dL (0.2)
[2023-07-21 17:48] LABS: WBC,URINE 0-2 /HPF (0-3)
[2023-07-21 17:49] LABS: ADD URINE CULTURE NO; BACTERIA,URINE None seen /HPF (None Seen); SQUAMOUS EPITHELIAL CELL,UR 0-2 /HPF (None Seen)
[2023-07-21] MEDS ORDERED: NAPR-1164 PO (18:02)
[2023-07-21] MEDS ORDERED: ESTR42.5 VG (18:09)
[2023-07-21 18:22] VITALS: BP 134/89; TEMP 98.1; O2SAT 97
== END 2023-07-21 18:23 | disposition home or self-care (01) ==
LOC: ER 13:12
DX: N95.2 Postmenopausal atrophic vaginitis (principal); R10.9 Unspecified abdominal pain; M19.90 Unspecified osteoarthritis, unspecified site; Z90.89 Acquired absence of other organs; Z88.5 Allergy status to narcotic agent
CPT/HCPCS: 99285; 74176; 96360; 93005; 85025; 80048; 83605; 83690; 80076; 81001; 36415; J7030; A4223

== ENCOUNTER 2024-06-10 00:26 | Inpatient (IN) | payer MEDICARE, BC, OTHER ==
[~2024-06-10] VITALS: Ht 167.6 cm; Wt 67.6 kg
[~2024-06-10 00:26] MED LIST changes: +ESTR42.5 VG; +NAPR-1164 PO
[2024-06-10] MEDS ORDERED: MORPHINE SULFATE INJ 4 MG/ML DISP.SYRIN ONE (01:04)
[2024-06-10] MEDS ORDERED: ONDANSETRON HCL/PF 4 MG/2 ML VIAL ONE (01:04)
[2024-06-10 01:05] LABS: BASOPHILS # (AUTO) 0.1 K/uL (0.0-0.2); BASOPHILS % (AUTO) 1.1 % (0.0-2.0); EOSINOPHILS % (AUTO) 12.3 % (0.0-6.0); HEMATOCRIT 36 % (33-45); HEMOGLOBIN 12.6 g/dL (11.5-14.8); LYMPHOCYTES # (AUTO) 3.6 K/uL (0.8-4.8); LYMPHOCYTES % (AUTO) 46.2 % (20.0-44.0); MEAN CORPUSCULAR HEMOGLOBIN 32 PG (26.0-33.0); MEAN CORPUSCULAR HGB CONC 35 g/dl (31.0-36.0); MEAN CORPUSCULAR VOLUME 91 fL (82-100); MONOCYTES # (AUTO) 0.6 K/uL (0.1-1.30); MONOCYTES % (AUTO) 7.9 % (2.0-12.0); NEUTROPHILS # (AUTO) 2.5 K/uL (1.8-8.9); NEUTROPHILS % (AUTO) 32.5 % (43.0-81.0); PLATELET COUNT (AUTO) 271 K/uL (150-450); RED BLOOD CELL COUNT(AUTO) 3.99 MIL/uL (4.0-5.2); RED CELL DISTRIBUTION WIDTH 14.7 % (11.5-15.0); WHITE BLOOD COUNT (AUTO) 7.8 K/uL (4.3-11.0)
[2024-06-10] MEDS: ONDANSETRON HCL/PF 4 MG/2 ML VIAL IVP ONE (01:05)
[2024-06-10] MEDS: MORPHINE SULFATE INJ 2 MG/ML DISP.SYRIN IV ONE (01:05)
[2024-06-10 01:14] LABS: CALCIUM, SERUM 8.3 mg/dL (8.5-10.1); CARBON DIOXIDE 30 mmol/L (21-32); CHLORIDE 95 mmol/L (98-107); CREATININE 0.8 mg/dL (0.6-1.3); GLUCOSE 102 mg/dL (74-106); POTASSIUM 3.7 mmol/L (3.5-5.1); SODIUM SERUM 130 mmol/L (136-145); UREA NITROGEN, BLOOD 8 mg/dL (7-18)
[2024-06-10 01:20] LABS: ALANINE AMINOTRANSFERASE 11 U/L (12-78); ALBUMIN 3.1 g/dL (3.4-5.0); ALKALINE PHOSPHATASE 90 U/L (46-116); ASPARTATE AMINOTRANSFERASE 14 U/L (15-37); BILIRUBIN,DIRECT 0.1 mg/dL (0.0-0.2); BILIRUBIN,TOTAL 0.3 mg/dL (0.2-1.0); LIPASE 18 U/L (16-77); TOTAL PROTEIN, SERUM 6.2 g/dL (6.4-8.2)
[2024-06-10] MEDS ORDERED: IOHEXOL-300 100 ML VIAL IV ONE (02:02)
[2024-06-10 03:08] LABS: APPEARANCE,URINE CLEAR (CLEAR); BILIRUBIN,URINE NEGATIVE (NEGATIVE); BLOOD, URINE NEGATIVE Ery/uL (NEGATIVE); COLOR,URINE YELLOW (YELLOW); KETONES,URINE NEGATIVE (NEGATIVE); LEUKOCYTE ESTERASE ,URINE NEGATIVE (NEGATIVE); NITRITE, URINE NEGATIVE (NEGATIVE); PROTEIN,URINE NEGATIVE (NEGATIVE); UGLUCOSE NEGATIVE (NEGATIVE); UROBILINOGEN,URINE 0.2 EU/dL (0.2)
[2024-06-10] MEDS ORDERED: MORPHINE SULFATE INJ 2 MG/ML DISP.SYRIN IV PRN (04:00)
[2024-06-10] MEDS ORDERED: ONDANSETRON HCL/PF 4 MG/2 ML VIAL IVP PRN (04:00)
[2024-06-10] MEDS ORDERED: Z GUARD REMEDY 4 OZ OINT TP PRN (04:00)
[2024-06-10 04:51] LABS: BASOPHILS # (AUTO) 0.1 K/uL (0.0-0.2); EOSINOPHILS # (AUTO) 0.5 K/uL (0.0-0.7); EOSINOPHILS % (AUTO) 5.1 % (0.0-6.0); HEMATOCRIT 39 % (33-45); HEMOGLOBIN 13.2 g/dL (11.5-14.8); LYMPHOCYTES # (AUTO) 2.3 K/uL (0.8-4.8); LYMPHOCYTES % (AUTO) 23.2 % (20.0-44.0); MEAN CORPUSCULAR HEMOGLOBIN 31 PG (26.0-33.0); MEAN CORPUSCULAR HGB CONC 34 g/dl (31.0-36.0); MEAN CORPUSCULAR VOLUME 91 fL (82-100); MONOCYTES # (AUTO) 0.5 K/uL (0.1-1.30); MONOCYTES % (AUTO) 5.5 % (2.0-12.0); NEUTROPHILS # (AUTO) 6.5 K/uL (1.8-8.9); NEUTROPHILS % (AUTO) 65.2 % (43.0-81.0); PLATELET COUNT (AUTO) 262 K/uL (150-450); RED BLOOD CELL COUNT(AUTO) 4.22 MIL/uL (4.0-5.2); RED CELL DISTRIBUTION WIDTH 14.6 % (11.5-15.0); WHITE BLOOD COUNT (AUTO) 9.9 K/uL (4.3-11.0)
[2024-06-10 05:05] LABS: ALANINE AMINOTRANSFERASE 16 U/L (12-78); ALBUMIN 3.2 g/dL (3.4-5.0); ALKALINE PHOSPHATASE 79 U/L (46-116); AMYLASE 47 U/L (25-115); ASPARTATE AMINOTRANSFERASE 16 U/L (15-37); BILIRUBIN,DIRECT 0.1 mg/dL (0.0-0.2); BILIRUBIN,TOTAL 0.4 mg/dL (0.2-1.0); CALCIUM, SERUM 9.1 mg/dL (8.5-10.1); CARBON DIOXIDE 28 mmol/L (21-32); CHLORIDE 97 mmol/L (98-107); CREATININE 0.7 mg/dL (0.6-1.3); GLUCOSE 93 mg/dL (74-106); LIPASE 17 U/L (16-77); MAGNESIUM 1.8 mg/dL (1.8-2.4); PHOSPHORUS 4.1 mg/dL (2.5-4.9); POTASSIUM 4.2 mmol/L (3.5-5.1); SODIUM SERUM 131 mmol/L (136-145); TOTAL PROTEIN, SERUM 6.5 g/dL (6.4-8.2); UREA NITROGEN, BLOOD 6 mg/dL (7-18)
[2024-06-10 07:21] VITALS: O2SAT 99
[2024-06-10] MEDS: PIPERACILLIN /TAZOBACTAM 3.375 G in IV D5W 50 ML IV ONE (08:56)
[2024-06-10] MEDS: PANTOPRAZOLE 40 MG VIAL IV SCH (08:56)
[2024-06-10] MEDS: IV NS 0.9% 1,000 ML IV PRN (08:57)
[2024-06-10 11:33] LABS: CHOLESTEROL 277 mg/dL (<200); HDL CHOLESTEROL 81 mg/dL (40-60); LDL 158 mg/dL (0-99); TRIGLYCERIDES 81 mg/dL (30-150)
[2024-06-10] MEDS ORDERED: TRAZ-182 PO (11:48)
[2024-06-10] MEDS ORDERED: CLON1TAB12 PO (11:48)
[2024-06-10] MEDS ORDERED: VILA20TA PO (11:48)
[2024-06-10] MEDS ORDERED: OXCA150T13 PO ×2 (11:48)
[2024-06-10] MEDS ORDERED: LAMO100T2 PO (11:48)
[2024-06-10] MEDS: ZOSYN IVPB 3.375 G in IV D5W 50ml IV SCH (12:57)
[2024-06-10] MEDS ORDERED: LORAZEPAM INJ 2 MG/ML VIAL IM ONE (13:00)
[2024-06-10] MEDS: clonazePAM 1 MG TABLET PO PRN ×2 (14:39→23:55)
[2024-06-10 16:00] VITALS: BP 112/73; TEMP 97.3; O2SAT 99
[2024-06-10 20:00] VITALS: BP 104/73; TEMP 98.4; O2SAT 100
[2024-06-10] MEDS: TRAZODONE 50 MG TABLET PO SCH ×2 (21:01→21:30)
[2024-06-11] MEDS: clonazePAM 0.5 MG TABLET PO ONE (05:55)
[2024-06-11 06:27] LABS: BASOPHILS # (AUTO) 0.1 K/uL (0.0-0.2); BASOPHILS % (AUTO) 0.9 % (0.0-2.0); EOSINOPHILS # (AUTO) 0.8 K/uL (0.0-0.7); EOSINOPHILS % (AUTO) 10.6 % (0.0-6.0); HEMATOCRIT 37 % (33-45); HEMOGLOBIN 12.7 g/dL (11.5-14.8); LYMPHOCYTES # (AUTO) 2.4 K/uL (0.8-4.8); LYMPHOCYTES % (AUTO) 32.4 % (20.0-44.0); MEAN CORPUSCULAR HEMOGLOBIN 31 PG (26.0-33.0); MEAN CORPUSCULAR HGB CONC 35 g/dl (31.0-36.0); MEAN CORPUSCULAR VOLUME 91 fL (82-100); MONOCYTES # (AUTO) 0.6 K/uL (0.1-1.30); NEUTROPHILS # (AUTO) 3.6 K/uL (1.8-8.9); NEUTROPHILS % (AUTO) 48.1 % (43.0-81.0); PLATELET COUNT (AUTO) 276 K/uL (150-450); RED BLOOD CELL COUNT(AUTO) 4.04 MIL/uL (4.0-5.2); RED CELL DISTRIBUTION WIDTH 14.6 % (11.5-15.0); WHITE BLOOD COUNT (AUTO) 7.4 K/uL (4.3-11.0)
[2024-06-11 06:52] LABS: ALANINE AMINOTRANSFERASE 13 U/L (12-78); ALKALINE PHOSPHATASE 65 U/L (46-116); ASPARTATE AMINOTRANSFERASE 12 U/L (15-37); BILIRUBIN,TOTAL 0.4 mg/dL (0.2-1.0); CALCIUM, SERUM 8.9 mg/dL (8.5-10.1); CARBON DIOXIDE 26 mmol/L (21-32); CHLORIDE 100 mmol/L (98-107); CREATININE 0.8 mg/dL (0.6-1.3); GLUCOSE 97 mg/dL (74-106); LIPASE 19 U/L (16-77); PHOSPHORUS 5.4 mg/dL (2.5-4.9); POTASSIUM 4.3 mmol/L (3.5-5.1); SODIUM SERUM 135 mmol/L (136-145); TOTAL PROTEIN, SERUM 6.3 g/dL (6.4-8.2); UREA NITROGEN, BLOOD 14 mg/dL (7-18)
[2024-06-11 06:53] LABS: URIC ACID 2.9 mg/dL (2.6-7.2)
[2024-06-11 08:00] VITALS: BP 100/65; TEMP 98.4; O2SAT 98
[2024-06-11] MEDS: PANTOPRAZOLE 40 MG TABLET.DR PO SCH (09:22)
== END 2024-06-11 15:05 | disposition home or self-care (01) | DRG 445 ==
LOC: ER 00:37 → MED 05:17
PROVIDERS: ADMIT Nurse Practitioner Family; ATTEND Nurse Practitioner Family
DX: K83.8 Other specified diseases of biliary tract (principal); E44.1 Mild protein-calorie malnutrition; K82.8 Other specified diseases of gallbladder; J44.9 Chronic obstructive pulmonary disease, unspecified; M81.0 Age-related osteoporosis without current pathological fracture; M19.90 Unspecified osteoarthritis, unspecified site; Z90.49 Acquired absence of other specified parts of digestive tract; Z66 Do not resuscitate; Z88.5 Allergy status to narcotic agent; K21.9 Gastro-esophageal reflux disease without esophagitis; Z79.899 Other long term (current) drug therapy; F43.10 Post-traumatic stress disorder, unspecified; F32.A Depression, unspecified; F41.9 Anxiety disorder, unspecified; K57.30 Diverticulosis of large intestine without perforation or abscess without bleeding; K44.9 Diaphragmatic hernia without obstruction or gangrene; F17.200 Nicotine dependence, unspecified, uncomplicated; E88.09 Other disorders of plasma-protein metabolism, not elsewhere classified; E78.5 Hyperlipidemia, unspecified; R25.1 Tremor, unspecified
CPT/HCPCS: 36415; 71045-TC; 76705-TC; 78226; 80048-TC; 80053-TC; 80061-TC; 80076-TC; 82150-TC; 83690-TC; 83735-TC; 84100-TC; 84443-TC; 84484-TC; 84550-TC; 85025-TC; A4223; A9537; G0378; J2270; J2405; J2470; J2543; J7030; J7060; Q9967

== ENCOUNTER 2024-07-05 15:12 | Inpatient (IN) | payer MEDICARE, BC, OTHER ==
[~2024-07-05] VITALS: Ht 167.6 cm; Wt 67.6 kg
[~2024-07-05 15:12] MED LIST changes: -BUSP5TAB3 PO; -CLON0.5T4 PO; +CLON1TAB12 PO; -ESTR42.5 VG; +LAMO100T2 PO; -NAPR-1164 PO; -NITR100C15 PO; +OXCA150T13 PO; -RISP0.253 PO; -SERT25TA5 PO; -SPIR25TA PO; +TRAZ-182 PO; +VILA20TA PO
[2024-07-05] MEDS: IV NS 0.9% 500 ML BAG IV ONE (15:32)
[2024-07-05 15:48] LABS: BASOPHILS # (AUTO) 0.1 K/uL (0.0-0.2); BASOPHILS % (AUTO) 0.6 % (0.0-2.0); EOSINOPHILS # (AUTO) 0.5 K/uL (0.0-0.7); EOSINOPHILS % (AUTO) 5.8 % (0.0-6.0); HEMATOCRIT 33 % (33-45); HEMOGLOBIN 11.5 g/dL (11.5-14.8); LYMPHOCYTES # (AUTO) 2.6 K/uL (0.8-4.8); LYMPHOCYTES % (AUTO) 27.8 % (20.0-44.0); MEAN CORPUSCULAR HEMOGLOBIN 32 PG (26.0-33.0); MEAN CORPUSCULAR HGB CONC 35 g/dl (31.0-36.0); MEAN CORPUSCULAR VOLUME 92 fL (82-100); MONOCYTES # (AUTO) 0.7 K/uL (0.1-1.30); MONOCYTES % (AUTO) 7.7 % (2.0-12.0); NEUTROPHILS # (AUTO) 5.4 K/uL (1.8-8.9); NEUTROPHILS % (AUTO) 58.1 % (43.0-81.0); PLATELET COUNT (AUTO) 258 K/uL (150-450); RED BLOOD CELL COUNT(AUTO) 3.57 MIL/uL (4.0-5.2); RED CELL DISTRIBUTION WIDTH 14.8 % (11.5-15.0); WHITE BLOOD COUNT (AUTO) 9.2 K/uL (4.3-11.0)
[2024-07-05 15:59] LABS: CALCIUM, SERUM 8.3 mg/dL (8.5-10.1); CARBON DIOXIDE 27 mmol/L (21-32); CHLORIDE 96 mmol/L (98-107); CREATININE 0.7 mg/dL (0.6-1.3); GLUCOSE 87 mg/dL (74-106); POTASSIUM 3.5 mmol/L (3.5-5.1); SODIUM SERUM 129 mmol/L (136-145); UREA NITROGEN, BLOOD 10 mg/dL (7-18)
[2024-07-05 16:04] LABS: INR 1.01 (0.91-1.10); PARTIAL THROMBOPLASTIN TIME 23.2 SEC (24.3-34.3); PROTHROMBIN TIME 10.4 SECS (9.2-11.1)
[2024-07-05] MEDS ORDERED: MORPHINE SULFATE INJ 4 MG/ML DISP.SYRIN ONE ×2 (16:07→17:04)
[2024-07-05] MEDS: MORPHINE SULFATE INJ 10 MG/ML DISP.SYRIN IV ONE ×2 (16:09→17:06)
[2024-07-05] MEDS ORDERED: Z GUARD REMEDY 4 OZ OINT TP PRN (19:00)
[2024-07-05] MEDS: OXCARBAZEPINE 150 MG TABLET PO SCH (21:33)
[2024-07-05] MEDS: MORPHINE SULFATE INJ 4 MG/ML DISP.SYRIN IV PRN (21:34)
[2024-07-06] MEDS ORDERED: IV NS 0.9% 1,000 ML BAG IV PRN
[2024-07-06] MEDS: ONDANSETRON HCL/PF 4 MG/2 ML VIAL IVP PRN (00:14)
[2024-07-06] MEDS: IV NS 0.9% 1,000 ML BAG IV PRN (00:16)
[2024-07-06 00:21] VITALS: BP 123/75; TEMP 98.2; O2SAT 96
[2024-07-06] MEDS: TRAZODONE 50 MG TABLET PO PRN (00:29)
[2024-07-06 06:55] LABS: BASOPHILS % (AUTO) 0.4 % (0.0-2.0); EOSINOPHILS # (AUTO) 0.2 K/uL (0.0-0.7); EOSINOPHILS % (AUTO) 2.3 % (0.0-6.0); HEMATOCRIT 30 % (33-45); LYMPHOCYTES # (AUTO) 1.4 K/uL (0.8-4.8); LYMPHOCYTES % (AUTO) 17.4 % (20.0-44.0); MEAN CORPUSCULAR HEMOGLOBIN 31 PG (26.0-33.0); MEAN CORPUSCULAR HGB CONC 34 g/dl (31.0-36.0); MEAN CORPUSCULAR VOLUME 92 fL (82-100); MONOCYTES # (AUTO) 0.7 K/uL (0.1-1.30); MONOCYTES % (AUTO) 8.6 % (2.0-12.0); NEUTROPHILS # (AUTO) 5.7 K/uL (1.8-8.9); NEUTROPHILS % (AUTO) 71.3 % (43.0-81.0); PLATELET COUNT (AUTO) 227 K/uL (150-450); RED BLOOD CELL COUNT(AUTO) 3.21 MIL/uL (4.0-5.2); RED CELL DISTRIBUTION WIDTH 14.6 % (11.5-15.0); WHITE BLOOD COUNT (AUTO) 7.9 K/uL (4.3-11.0)
[2024-07-06 07:21] LABS: CARBON DIOXIDE 24 mmol/L (21-32); CHLORIDE 100 mmol/L (98-107); CREATININE 0.5 mg/dL (0.6-1.3); GLUCOSE 102 mg/dL (74-106); MAGNESIUM 1.8 mg/dL (1.8-2.4); PHOSPHORUS 3.9 mg/dL (2.5-4.9); SODIUM SERUM 135 mmol/L (136-145); UREA NITROGEN, BLOOD 10 mg/dL (7-18)
[2024-07-06 07:30] VITALS: BP 104/58; TEMP 98.3; O2SAT 92
[2024-07-06] MEDS: OXCARBAZEPINE 150 MG TABLET PO SCH (09:00)
[2024-07-06] MEDS: LamoTRIgine 100 MG TABLET PO SCH (09:00)
[2024-07-06] MEDS: HYDROMORPHONE 1 MG/1 ML DISP.SYRIN IV PRN (12:38)
[2024-07-06] MEDS ORDERED: BUPIVACAINE 0.25% 75 MG/30 ML VIAL ONE (13:09)
[2024-07-06] MEDS ORDERED: BUPIVACAINE 0.5 % PF 150 MG/30 ML VIAL ONE (13:09)
[2024-07-06] MEDS: PANTOPRAZOLE 40 MG VIAL IV SCH (13:36)
[2024-07-06] MEDS ORDERED: ENOXAPARIN SODIUM 30 MG/0.3 ML DISP.SYRIN SQ SCH (14:30)
[2024-07-06 15:57] LABS: APPEARANCE,URINE CLEAR (CLEAR); BILIRUBIN,URINE NEGATIVE (NEGATIVE); BLOOD, URINE TRACE-INTA Ery/uL (NEGATIVE); COLOR,URINE YELLOW (YELLOW); KETONES,URINE TRACE mg/dL (NEGATIVE); LEUKOCYTE ESTERASE ,URINE 1+ (NEGATIVE); NITRITE, URINE NEGATIVE (NEGATIVE); PROTEIN,URINE NEGATIVE (NEGATIVE); UGLUCOSE NEGATIVE (NEGATIVE); UROBILINOGEN,URINE 0.2 EU/dL (0.2)
[2024-07-06 16:09] LABS: URINE SODIUM, RANDOM 67 mmol/l (40-220)
[2024-07-06 16:13] VITALS: BP 101/57; TEMP 98.6; O2SAT 96
[2024-07-06 16:34] LABS: ADD URINE CULTURE YES; BACTERIA,URINE 1+ /HPF (None Seen)
[2024-07-06 16:35] LABS: MUCUS,URINE Few /LPF (None Seen)
[2024-07-06] MEDS: VILAZODONE 20 MG PO SCH (17:03)
[2024-07-06] MEDS: ENOXAPARIN SODIUM 40 MG/0.4 ML DISP.SYRIN SQ SCH (18:51)
[2024-07-06 20:00] VITALS: BP_SYST 125; BP_SYST 141; BP_DIAS 63; BP_DIAS 70; TEMP 99.5; O2SAT 98; O2SAT 99
[2024-07-07] VITALS (8 sets, daily range): BP systolic 109–115; BP diastolic 36–75; TEMP 98.1–99.9; O2SAT 95–100
[2024-07-07 06:35] LABS: URIC ACID 2.6 mg/dL (2.6-7.2)
[2024-07-07 06:37] LABS: CALCIUM, SERUM 8.6 mg/dL (8.5-10.1); CARBON DIOXIDE 26 mmol/L (21-32); CHLORIDE 101 mmol/L (98-107); CREATININE 0.4 mg/dL (0.6-1.3); GLUCOSE 101 mg/dL (74-106); MAGNESIUM 1.9 mg/dL (1.8-2.4); PHOSPHORUS 3.7 mg/dL (2.5-4.9); POTASSIUM 4.2 mmol/L (3.5-5.1); SODIUM SERUM 137 mmol/L (136-145); UREA NITROGEN, BLOOD 12 mg/dL (7-18)
[2024-07-07] MEDS ORDERED: BUPIVACAINE 0.5 % PF 150 MG/30 ML VIAL ONE (07:21)
[2024-07-07] MEDS ORDERED: BUPIVACAINE 0.25% 75 MG/30 ML VIAL ONE (07:21)
[2024-07-07] MEDS ORDERED: ALBUMIN 5% 250 ML IV ONE (07:48)
[2024-07-07] MEDS ORDERED: HYDROMORPHONE INJ 2 MG/ML DISP.SYRIN ONE (07:49)
[2024-07-07] MEDS ORDERED: FENTANYL PF 100MCG/2ML AMPUL ONE (07:49)
[2024-07-07] MEDS ORDERED: SUCCINYLCHOLINE CHLORIDE 20 MG/ML VIAL ONE (07:49)
[2024-07-07] MEDS ORDERED: TRANEXAMIC ACID 1,000 MG/10 ML VIAL ONE (07:53)
[2024-07-07] MEDS ORDERED: DOSE PER PHARMACY (MD SPECIFY MEDICATION) 1 EA IV PRN (13:00)
[2024-07-07 13:30] LABS: HEMOGLOBIN 8.8 g/dL (11.5-14.8)
[2024-07-07 16:16] LABS: OSMOLALITY,URINE 430 mOS/kg (340-1090)
[2024-07-07] MEDS: CEFAZOLIN 2 GM in IV D5W 100 ML IV SCH (16:36)
[2024-07-07] MEDS: clonazePAM 1 MG TABLET PO PRN (22:00)
[2024-07-08 08:00] VITALS: BP 153/40; TEMP 100; O2SAT 90
[2024-07-08] MEDS: ACETAMINOPHEN 325 MG TABLET PO PRN (08:24)
[2024-07-08] MEDS ORDERED: HYDR-4209 PO (08:37)
[2024-07-08] MEDS ORDERED: ENOX40DI SQ (08:37)
[2024-07-08] MEDS ORDERED: DOCU-141 PO (08:37)
[2024-07-08] MEDS: ENOXAPARIN SODIUM 40 MG/0.4 ML DISP.SYRIN SQ SCH (10:14)
[2024-07-08] MEDS: MAG HYDROX/AL HYDROX/SIMETH 30 ML UDC PO PRN (10:53)
[2024-07-08] MEDS: MAGNESIUM HYDROXIDE 30 ML UDC PO PRN (10:53)
[2024-07-08 12:35] LABS: BASOPHILS % (AUTO) 0.4 % (0.0-2.0); EOSINOPHILS % (AUTO) 0.4 % (0.0-6.0); HEMATOCRIT 22 % (33-45); HEMOGLOBIN 7.6 g/dL (11.5-14.8); LYMPHOCYTES # (AUTO) 1.2 K/uL (0.8-4.8); LYMPHOCYTES % (AUTO) 13.9 % (20.0-44.0); MEAN CORPUSCULAR HEMOGLOBIN 33 PG (26.0-33.0); MEAN CORPUSCULAR HGB CONC 35 g/dl (31.0-36.0); MEAN CORPUSCULAR VOLUME 93 fL (82-100); MONOCYTES # (AUTO) 1.1 K/uL (0.1-1.30); MONOCYTES % (AUTO) 12.2 % (2.0-12.0); NEUTROPHILS # (AUTO) 6.5 K/uL (1.8-8.9); NEUTROPHILS % (AUTO) 73.1 % (43.0-81.0); PLATELET COUNT (AUTO) 207 K/uL (150-450); RED BLOOD CELL COUNT(AUTO) 2.32 MIL/uL (4.0-5.2); RED CELL DISTRIBUTION WIDTH 14.6 % (11.5-15.0); WHITE BLOOD COUNT (AUTO) 8.9 K/uL (4.3-11.0)
[2024-07-08 12:46] LABS: CALCIUM, SERUM 8.1 mg/dL (8.5-10.1); CARBON DIOXIDE 31 mmol/L (21-32); CHLORIDE 105 mmol/L (98-107); CREATININE 0.6 mg/dL (0.6-1.3); GLUCOSE 119 mg/dL (74-106); POTASSIUM 3.7 mmol/L (3.5-5.1); SODIUM SERUM 139 mmol/L (136-145); UREA NITROGEN, BLOOD 12 mg/dL (7-18)
[2024-07-08 16:00] VITALS: BP 89/68; TEMP 99.3; O2SAT 91
[2024-07-08 20:46] VITALS: BP 97/87; TEMP 99; O2SAT 92
[2024-07-08 22:44] VITALS: BP 106/52; O2SAT 96
[2024-07-09 07:03] LABS: APPEARANCE,URINE TURBID (CLEAR); BILIRUBIN,URINE NEGATIVE (NEGATIVE); BLOOD, URINE NEGATIVE Ery/uL (NEGATIVE); COLOR,URINE DARK YELLOW (YELLOW); KETONES,URINE NEGATIVE (NEGATIVE); LEUKOCYTE ESTERASE ,URINE TRACE (NEGATIVE); NITRITE, URINE NEGATIVE (NEGATIVE); PH,URINE 5.5 (5.0-8.0); PROTEIN,URINE TRACE mg/dl (NEGATIVE); UGLUCOSE NEGATIVE (NEGATIVE); UROBILINOGEN,URINE 0.2 EU/dL (0.2)
[2024-07-09 07:06] LABS: ADD URINE CULTURE NO; BACTERIA,URINE Few /HPF (None Seen); SQUAMOUS EPITHELIAL CELL,UR Rare /HPF (None Seen)
[2024-07-09 08:00] VITALS: BP 100/60; TEMP 98.8; O2SAT 96
[2024-07-09 16:00] VITALS: BP 113/73; TEMP 98.6; O2SAT 94
[2024-07-09] MEDS: ENSURE ENLIVE CHOC 237 ML CAN PO SCH (16:56)
[2024-07-09 20:00] VITALS: BP 111/57; TEMP 98.2; O2SAT 94
[2024-07-09 20:16] LABS: HEMOGLOBIN 6.4 g/dL (11.5-14.8)
[2024-07-09 23:37] VITALS: BP 95/80; TEMP 98.8
[2024-07-09 23:53] VITALS: BP 121/63; TEMP 98.4
[2024-07-10] VITALS (7 sets, daily range): BP systolic 100–121; BP diastolic 57–96; TEMP 98.1–98.8; O2SAT 96
[2024-07-10 04:19] LABS: BASOPHILS % (AUTO) 0.3 % (0.0-2.0); EOSINOPHILS # (AUTO) 0.2 K/uL (0.0-0.7); EOSINOPHILS % (AUTO) 2.7 % (0.0-6.0); HEMATOCRIT 22 % (33-45); HEMOGLOBIN 7.3 g/dL (11.5-14.8); LYMPHOCYTES # (AUTO) 1.2 K/uL (0.8-4.8); LYMPHOCYTES % (AUTO) 16.5 % (20.0-44.0); MEAN CORPUSCULAR HEMOGLOBIN 31 PG (26.0-33.0); MEAN CORPUSCULAR HGB CONC 34 g/dl (31.0-36.0); MEAN CORPUSCULAR VOLUME 93 fL (82-100); MONOCYTES # (AUTO) 0.6 K/uL (0.1-1.30); MONOCYTES % (AUTO) 8.9 % (2.0-12.0); NEUTROPHILS # (AUTO) 5.2 K/uL (1.8-8.9); NEUTROPHILS % (AUTO) 71.6 % (43.0-81.0); PLATELET COUNT (AUTO) 214 K/uL (150-450); RED BLOOD CELL COUNT(AUTO) 2.34 MIL/uL (4.0-5.2); RED CELL DISTRIBUTION WIDTH 14.5 % (11.5-15.0); WHITE BLOOD COUNT (AUTO) 7.3 K/uL (4.3-11.0)
[2024-07-10] MEDS: PANTOPRAZOLE 40 MG TABLET.DR PO SCH (08:35)
[2024-07-10 10:09] LABS: HEMOGLOBIN 8.6 g/dL (11.5-14.8)
[2024-07-10] MEDS: LACTULOSE 10 G/15 ML UDC (PYXIS) PO ONE (11:10)
== END 2024-07-10 12:30 | DRG 481 ==
LOC: ER 15:32 → MED 17:42
PROVIDERS: ADMIT Internal Medicine; ATTEND Internal Medicine
PROC: 0QS706Z Reposition Left Upper Femur with Intramedullary Internal Fixation Device, Open Approach (ICD-10-PCS; principal; 2024-07-05)
PROC: 30233N1 Transfusion of Nonautologous Red Blood Cells into Peripheral Vein, Percutaneous Approach (ICD-10-PCS; 2024-07-09)
DX: S72.142A Displaced intertrochanteric fracture of left femur, initial encounter for closed fracture (principal); E87.1 Hypo-osmolality and hyponatremia; F31.32 Bipolar disorder, current episode depressed, moderate; W01.0XXA Fall on same level from slipping, tripping and stumbling without subsequent striking against object, initial encounter; Y92.009 Unspecified place in unspecified non-institutional (private) residence as the place of occurrence of the external cause; G25.0 Essential tremor; I10 Essential (primary) hypertension; E86.9 Volume depletion, unspecified; M81.0 Age-related osteoporosis without current pathological fracture; M19.90 Unspecified osteoarthritis, unspecified site; Z79.899 Other long term (current) drug therapy; Z88.5 Allergy status to narcotic agent; Z90.49 Acquired absence of other specified parts of digestive tract; F41.9 Anxiety disorder, unspecified; F43.10 Post-traumatic stress disorder, unspecified; K21.9 Gastro-esophageal reflux disease without esophagitis; F39 Unspecified mood [affective] disorder; F17.200 Nicotine dependence, unspecified, uncomplicated; D64.9 Anemia, unspecified
CPT/HCPCS: 36415; 71045-TC; 72170-TC; 73502; 73552; 73564-TC; 80048-TC; 81001; 83735-TC; 83935-TC; 84100-TC; 84300-TC; 84443-TC; 84550-TC; 85025-TC; 85027-TC; 85730-TC; 86850-TC; 87081-TC; 87086-TC; 97110-TC; 97112-TC; 97530-TC; 97535-TC; A4223; A6209; A6253; C1713; G0378; J0330; J0690; J1100; J1170; J1650; J2270; J2405; J2470; J2704; J2765; J3010; J3490; J7030; J7040; J7050; J7060; P9016; P9045

== ENCOUNTER → 2025-09-22 | Emergency (ER) | payer MEDICARE, BC, MEDICAID ==
[~2025-09-22] VITALS: Ht 162.6 cm; Wt 58.1 kg
[~2025-09-22] MED LIST changes: +DOCU-141 PO; +ENOX40DI SQ; +HYDR-4209 PO; +ONDA4TAB5 PO; +PANT40TA2 PO
[2025-09-22 12:51] LABS: CALCIUM, SERUM 8.9 mg/dL (8.5-10.1); CREATININE 0.6 mg/dL (0.6-1.3); SODIUM SERUM 141.0 mmol/L (136-145); UREA NITROGEN, BLOOD 7.0 mg/dL (7-18)
[2025-09-22 12:55] LABS: PLATELET COUNT (AUTO) 266 K/uL (150-450); RED BLOOD CELL COUNT(AUTO) 4.18 MIL/uL (4.0-5.2); RED CELL DISTRIBUTION WIDTH 15.0 % (11.5-15.0); WHITE BLOOD COUNT (AUTO) 6.2 K/uL (4.3-11.0)
[2025-09-22 12:57] LABS: ASPARTATE AMINOTRANSFERASE 12.0 U/L (15-37); TOTAL PROTEIN, SERUM 6.7 g/dL (6.4-8.2)
[2025-09-22 13:48] VITALS: BP 132/86; TEMP 98.2; O2SAT 98
== END | disposition home or self-care (01) ==
LOC: ER 12:14
DX: R10.84 Generalized abdominal pain (principal); M19.90 Unspecified osteoarthritis, unspecified site; Z79.899 Other long term (current) drug therapy; Z87.891 Personal history of nicotine dependence; Z88.5 Allergy status to narcotic agent; Z90.49 Acquired absence of other specified parts of digestive tract
CPT/HCPCS: 36415; 76705-TC; 80048-TC; 80076-TC; 83690-TC; 85025-TC